=== PATIENT | male | born 1935 | race Caucasian/White ===

== ENCOUNTER 2024-02-16 14:04 | Emergency (ER) | payer BC, SELFPAY ==
[2024-02-16] VITALS (10 sets, daily range): BP systolic 139–179; BP diastolic 65–79; PULSE 58–63; RESP 40; TEMP 36.5; O2SAT 96–100; BMI 21.3
--- NOTE | 2024-02-16 14:42 | CRLHL7_ITS ---
For Patients: As a result of the Century Cures Act, medical imaging exams and procedure reports are released immediately into your electronic medical record. You may view this report before your referring provider. If you have questions, please contact your health care provider. Indication: Shortness of breath Technique: Chest 2 views Comparison: None Findings/Impression: Cardiovascular and mediastinum: Normal heart size with atherosclerotic calcification. 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 Trace left and small right pleural effusions likely with some loculation with bibasilar airspace disease. Findings are consistent with discoid atelectasis at the left lung base and could represent atelectasis or pneumonia on the right. Bones and soft tissues: No significant findings. Dictated by Kirk Arriaza MD @ 02/16/2024 3:28:10 PM (Electronically Signed)
[2024-02-16 15:06] LABS: Basophils Absolute Auto 0.03 K/uL (0.00-0.30); Basophils Percent Auto 0.3 % (0.0-3.0); Eosinophils Percent Auto 1.1 % (0.0-7.0); Hematocrit 39.1 % (37.0-53.0); Immature Granulocytes Abs Auto 0.03 K/uL (0.00-0.30); Immature Granulocytes Pct Auto 0.3 %; Lymphocytes Percent Auto 7.1 % (20-44); Mean Corpuscular HGB Conc 31 gm/dL (32-36); Mean Corpuscular Hemoglobin 26 pg (26-34); Mean Corpuscular Volume 84 fL (80-100); Monocytes Percent Auto 7.9 % (0.0-11.0); Neutrophils Percent Auto 83.3 % (42.0-72.0); Platelet Count* 298 K/uL (140-440); Red Blood Count 4.65 m/uL (4.30-5.90)
[2024-02-16 15:08] LABS: Slide Review Reflex No
--- NOTE | 2024-02-16 15:17 | ED_ITS ---
HPI - General Adult General Chief complaint: Weakness Stated complaint: insulin issues, fatigue Time Seen by Provider: 02/16/24 14:16 Source: patient and family Mode of arrival: ambulatory Limitations: no limitations History of Present Illness HPI narrative: 88-year-old male coming in today complaining of weakness and shortness of breath for approximately 1 month. He lives at home with his daughter who takes care of them, she states that she has seen him decline over the last month with increasing fatigue, weakness and inability to do his daily activity secondary to shortness of breath. No fevers. Patient has had very little appetite and has had decreased p.o. intake. Unclear if he is losing weight or not. His past medical history significant for chronic anemia, benign neoplasm of the meninges, hypertension, history of TIA and stroke, hyperlipidemia, chronic kidney disease stage 4, insulin-dependent type 2 diabetes. He takes acetaminophen, vitamin-D, Lasix 20 mg daily, metoprolol 100 mg b.i.d., rosuvastatin 10 mg daily, insulin. Related Data Home Medications ?Medication ?Instructions ?Recorded ?Confirmed cholecalciferol (vitamin D3) 50 50 mcg PO DAILY 02/16/24 02/16/24 mcg (2,000 unit) capsule furosemide 20 mg tablet 20 mg PO DAILY 02/16/24 02/16/24 metoprolol tartrate 100 mg tablet 100 mg PO BID 02/16/24 02/16/24 (Lopressor) rosuvastatin 10 mg tablet 10 mg PO DAILY 02/16/24 02/16/24 Allergies Allergy/AdvReac Type Severity Reaction Status Date / Time No Known Drug Allergies Allergy Verified 02/16/24 14:24 Review of Systems Status of ROS: Reports: 10 or more systems reviewed and unremarkable except as noted in History and below [facility] Social History Smoking Status: Never smoker How often do you have a drink containing alcohol: never AUDIT-C Alcohol total score: 0 Non-prescribed substance use: denies use Exam Narrative: Exam Narrative: Well-nourished well-developed, thin, elderly patient in no acute distress. Alert and oriented. Answers questions appropriately. Mood and affect are appropriate. Thoughts are goal oriented and rational. No tangential or magical thinking noted. Patient has a hard time finishing a full sentence without needing to catch his breath. Starts talking about how poorly he has been feeling over the last month a becomes very tearful and starts crying and hyperventilating. He does have to be calmed down but he is generally redirectable. When he is not tearful, patient's respiratory rate is 20 at rest. He is not tachypneic or tachycardic. HEENT: Normocephalic atraumatic. Pupils are equally round reactive to light. Extraocular muscles are intact. Conjunctivae are moist without any icterus noted. Moist mucous membranes. Posterior pharynx is normal. Neck is soft. Cardiovascular: Heart is regular rate and rhythm S1 and S2 are present without any murmurs. Lungs: Clear to auscultation bilaterally no wheezes rhonchi or rales are appreciated. Patient takes deep breaths without any discomfort. Abdomen: Soft and nontender nondistended with normal bowel sounds. No guarding or rebound. No masses or organomegaly appreciated. Extremities: Bilateral lower extremities are without edema. Normal DP and PT pulses. Skin: Well perfused without any obvious rashes. Skin is a bit dry. Const: Vital Signs, click to edit/add: Vital Signs - 24 hr 02/16/24 14:15 02/16/24 14:45 02/16/24 15:00 Temperature 97.7 F Pulse Rate 62 61 Pulse Rate [Pulse Oximeter] 63 Respiratory Rate 40 H Blood Pressure Blood Pressure [Ri ght Upper Arm] 179/79 H Pulse Oximetry 99 100 99 Oxygen Delivery Me thod Room Air 02/16/24 15:02 02/16/24 15:30 02/16/24 15:45 Temperature Pulse Rate 62 62 59 L Pulse Rate [Pulse Oximeter] Respiratory Rate Blood Pressure 163/78 H Blood Pressure [Ri ght Upper Arm] Pulse Oximetry 96 96 96 Oxygen Delivery Me thod 02/16/24 16:00 02/16/24 16:02 02/16/24 16:14 Temperature Pulse Rate 58 L 62 Pulse Rate [Pulse Oximeter] Respiratory Rate Blood Pressure 139/65 Blood Pressure [Ri ght Upper Arm] Pulse Oximetry 96 97 98 Oxygen Delivery Me thod 02/16/24 16:15 Temperature Pulse Rate 59 L Pulse Rate [Pulse Oximeter] Respiratory Rate Blood Pressure Blood Pressure [Ri ght Upper Arm] Pulse Oximetry 98 Oxygen Delivery Me thod Course Course ED Course: EKG, read by me, shows normal sinus rhythm with a pulse of 63, bifascicular block. I do not see any evidence of acute ischemic changes. CBC shows normal white cell count, hemoglobin is 12. Platelet count 298. Creatinine is elevated at 3.5 and a BUN of 110. Patient and daughter her unaware of his baseline but states that it is not normal. Magnesium slightly elevated at 3.0. Normal LFTs. CRP elevated at 3.0. Troponin is normal. BNP is elevated at 2750. Urine analysis is unremarkable. TSH is normal. Chest x-ray does show trace left and small right pleural effusions consistent with discoid atelectasis but could represent pneumonia. Given the fact that the patient does not have an elevated white count, does not have a cough with fevers and has been having symptoms for a month I do not think that this represents acute pneumonia. 88-year-old male with 1 month worth of decreased appetite, shortness of breath and generalized not feeling well. At this point I recommend patient take all of his blood work results and follow up with his primary care provider. I do think that he can increase his Lasix to b.i.d. for the next 3 days to see if this helps his shortness of breath at all. Vital Signs Vital signs: Initial Vital Signs Temperature 97.7 F 02/16/24 14:15 Temperature Source Temporal Artery Scan 02/16/24 14:15 Pulse Rate 63 02/16/24 14:15 Respiratory Rate 40 H 02/16/24 14:15 Blood Pressure 179/79 H 02/16/24 14:15 Blood Pressure Mean 112 H 02/16/24 14:15 Blood Pressure Position Semi-Fowlers 02/16/24 14:15 Pulse Oximetry 99 02/16/24 14:15 Oxygen Delivery Method Room Air 02/16/24 14:15 Vital Signs Temperature 97.7 F 02/16/24 14:15 Pulse Rate 63 02/16/24 14:15 Respiratory Rate 40 H 02/16/24 14:15 Blood Pressure 179/79 H 02/16/24 14:15 Pulse Oximetry 99 02/16/24 14:15 Oxygen Delivery Method Room Air 02/16/24 14:15 Temperature 97.7 F 02/16/24 14:15 Pulse Rate 59 L 02/16/24 16:15 Respiratory Rate 40 H 02/16/24 14:15 Blood Pressure 139/65 02/16/24 16:02 Pulse Oximetry 98 02/16/24 16:15 Oxygen Delivery Method Room Air 02/16/24 14:15 Medical Decision Making MDM Narrative Medical decision making narrative: 88-year-old male with 1 month worth of not feeling well, decreased appetite and shortness of breath. Plan per above. Lab Data Lab results reviewed: Yes I reviewed the patient's lab results Labs: Lab Results 02/16/24 02/16/24 Range/Units 14:58 Unknown WBC 9.10 (4.50-11.00) K/uL RBC 4.65 (4.30-5.90) m/uL Hgb 12.0 L (13.5-17.5) gm/dL Hct 39.1 (37.0-53.0) % MCV 84 (80-100) fL MCH 26 (26-34) pg MCHC 31 L (32-36) gm/dL RDW Coeff of [place] 15.0 (11.5-15.5) % Plt Count 298 (140-440) K/uL Neut % (Auto) 83.3 H (42.0-72.0) % Lymph % (Auto) 7.1 L (20-44) % [place] % (Auto) 7.9 (0.0-11.0) % Eos % (Auto) 1.1 (0.0-7.0) % Baso % (Auto) 0.3 (0.0-3.0) % Neut # (Auto) 7.60 H (1.7-7.0) K/uL Lymph # (Auto) 0.60 L (0.90-2.90) K/uL [place] # (Auto) 0.70 (0.00-0.90) K/UL Eos # (Auto) 0.10 (0.00-0.50) K/uL Baso # (Auto) 0.03 (0.00-0.30) K/uL Abs Immat Gran (auto) 0.03 (0.00-0.30) K/uL Imm/Tot Granulo (auto) 0.3 % Sodium 138 (135-149) mmol/L Potassium 4.1 (3.6-5.1) mmol/L Chloride 100 (96-114) mmol/L Carbon Dioxide 26 (20-32) mmol/L Anion Gap 12 (7-15) mEq/L BUN 110 H (7-30) mg/dL Creatinine 3.5 H (0.5-1.5) mg/dL Estimated Creat Clear 13.10 Estimated GFR 16 ml/min Glucose 244 H (60-115) mg/dL Lactate 1.0 (0.5-1.9) mmol/L Calcium 8.9 (8.4-10.6) mg/dL Magnesium 3.0 H (1.5-2.6) mg/dL Total Bilirubin 0.5 (0.1-1.5) mg/dL Direct Bilirubin 0.4 (0.0-0.5) mg/dL AST 42 H (12-35) U/L ALT 49 (4-50) U/L Alkaline Phosphatase 111 (40-150) U/L Troponin I < 0.01 L (0.01-0.04) ng/mL C-Reactive Protein 3.0 H (0.5-1.0) mg/dL NT-Pro-B Natriuret Pep 2750 pg/mL Total Protein 6.9 (6.0-8.3) g/dL Albumin 3.7 (3.3-5.0) g/dL TSH 0.900 (0.270-4.20) uIU/mL Urine Color Yellow (Yellow) Urine Appearance Clear (Clear) Urine pH 5.5 (5.0-8.5) Ur Specific [place] 1.015 (1.000-1.030) Urine Protein 1+ A (Negative) Urine Glucose (UA) Trace A (Negative) Urine Ketones Negative (Negative) Urine Blood Negative (Negative) Urine Nitrite Negative (Negative) Urine Bilirubin Negative (Negative) Urine Urobilinogen 0.2 (0.2-1.0) Ur Leukocyte Esterase Negative (Negative) Urine RBC 0-2 (0-2) Urine WBC 0-2 (0-5) Ur Squamous Epith Cells None (None-Few) Urine Bacteria None (None) Imaging Data Chest x-ray: Attestation: I have reviewed the pertinent imaging results. Radiologist's impression: Chest 2 views Comparison: None Findings/Impression: Cardiovascular and mediastinum: Normal heart size with atherosclerotic calcification. 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 Trace left and small right pleural effusions likely with some loculation with bibasilar airspace disease. Findings are consistent with discoid atelectasis at the left lung base and could represent atelectasis or pneumonia on the right. Bones and soft tissues: No significant findings. ECG Data Attestation: I personally reviewed and interpreted this ECG as follows: Discharge Plan Discharge Clinical Impression: Shortness of breath, Decreased appetite, Weakness Patient Disposition: Home w/ Parent or Adult Condition: Stable Additional Instructions: Your workup today revealed that your slightly fluid overloaded. This can cause shortness of breath. I recommend you increase your Lasix to 2 tablets daily for 2 days. Okay to take both tablets in the morning so that you are not up at night having to use the bathroom. You will be sent home with a copy of all your lab results today. I recommend you take those lab copies and follow-up with your primary care provider early next week. If your symptoms worsen, you develop chest pain, vomiting or fevers then you should return to the emergency room. Prescriptions: No Action cholecalciferol (vitamin D3) 50 mcg (2,000 unit) capsule 50 mcg PO DAILY furosemide 20 mg tablet 20 mg PO DAILY metoprolol tartrate [Lopressor] 100 mg tablet 100 mg PO BID rosuvastatin 10 mg tablet 10 mg PO DAILY Follow Up/Referrals: Tony Escobar MD [Primary Care Provider] - Stand Alone Forms: [employer] Info Instructions
[2024-02-16 15:27] LABS: Albumin* 3.7 g/dL (3.3-5.0); Chloride* 100 mmol/L (96-114); Sodium* 138 mmol/L (135-149)
[2024-02-16 15:28] LABS: Potassium* 4.1 mmol/L (3.6-5.1)
[2024-02-16 15:30] LABS: Anion Gap 12 mEq/L (7-15); Aspartate Amino Transferase* 42 U/L (12-35); Bilirubin Direct* 0.4 mg/dL (0.0-0.5); Bilirubin Total* 0.5 mg/dL (0.1-1.5); Carbon Dioxide* 26 mmol/L (20-32); Creatinine* 3.5 mg/dL (0.5-1.5); Estimated Glomerular Filt Rate 16 ml/min
[2024-02-16 15:31] LABS: Alanine Aminotransferase* 49 U/L (4-50); Alkaline Phosphatase* 111 U/L (40-150); Blood Urea Nitrogen* 110 mg/dL (7-30); Calcium* 8.9 mg/dL (8.4-10.6); Glucose* 244 mg/dL (60-115); Total Protein* 6.9 g/dL (6.0-8.3)
[2024-02-16 15:35] LABS: Appearance Urine Clear (Clear); Bilirubin Urine Negative (Negative); Blood Urine Negative (Negative); Color Urine Yellow (Yellow); Glucose Urine Trace (Negative); Ketones Urine Negative (Negative); Leukocyte Esterase Urine Negative (Negative); Nitrite Urine Negative (Negative); Protein Urine 1+ (Negative); Specific Gravity Urine 1.015 (1.000-1.030); Urobilinogen Urine 0.2 (0.2-1.0); pH Urine 5.5 (5.0-8.5)
[2024-02-16 15:45] LABS: NT Pro B Type NatriureticPept* 2750 pg/mL; Troponin I* < 0.01 ng/mL (0.01-0.04)
[2024-02-16 15:46] LABS: RBC Urine 0-2 (0-2); WBC Urine 0-2 (0-5)
[2024-02-16 16:58] LABS: PCR FLU A Negative PCR FLU A (Negative); PCR FLU B Negative PCR FLU B (Negative); PCR RSV Negative PCR RSV (Negative); SARS PCR* Negative SARS-CoV-2 (Negative)
== END 2024-02-16 16:55 | disposition home or self-care (01) ==
PROVIDERS: Emergency Provider Family Medicine; PCP Surgery
DX: R06.02 Shortness of breath (principal); R63.0 Anorexia; R53.1 Weakness
CPT/HCPCS: 36415; 71046; 80048; 80076; 81001; 83605; 83735; 83880; 84443; 84484; 85025; 86140; 87086; 87631; 93005; 94761; 99284; 99285

== ENCOUNTER 2024-02-27 11:30 | Outpatient (CLI) | payer MEDICARE, SELFPAY ==
[2024-02-27 11:41] VITALS: BP 152/73; PULSE 64; RESP 18; TEMP 36.4; O2SAT 99
--- NOTE | 2024-02-27 11:55 | CRLHL7_ITS ---
For Patients: As a result of the Century Cures Act, medical imaging exams and procedure reports are released immediately into your electronic medical record. You may view this report before your referring provider. If you have questions, please contact your health care provider. Indication: Post thoracentesis. Technique: Chest 1 view. Comparison: Chest radiographs dated 02/16/2024. Findings/Impression: Cardiovascular and mediastinum: Heart size and vasculature are unchanged in caliber and appearance. Redemonstrated patchy bilateral peripheral hyperdensities, most pronounced in the left lung base lung, likely reflecting calcified pleural plaques. Lungs and pleural space: Interval decrease size of the right pleural effusion with likely small volume residual fluid. Persistent right basilar consolidation may reflect resolving atelectasis, though this could be further characterized with a chest CT. No evident new consolidation or pneumothorax. Bones and soft tissues: No acute findings. Dictated by Blayne Carr MD @ 02/27/2024 12:47:27 PM (Electronically Signed)
[2024-02-27 12:09] VITALS: BP 148/68; PULSE 64; RESP 16; O2SAT 98
--- NOTE | 2024-02-27 12:18 | PM.GSCN ---
History of Present Illness Consult details Date Seen: 02/27/24 Consult date: 02/27/24 Narrative: Patient presents for a diagnostic thoracentesis. He was seen by his primary doctor for fatigue and shortness of breath. 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 An order was placed for a diagnostic and therapeutic thoracentesis. Patient has never had this performed before. He is maintained on room air with no need for oxygen. He lives at home with his daughter who is present with him today. [facility] Social History Smoking Status: Never smoker How often do you have a drink containing alcohol: never AUDIT-C Alcohol total score: 0 Non-prescribed substance use: denies use Meds Home Medications and Allergies Home Medications ?Medication ?Instructions ?Recorded ?Confirmed ?Type cholecalciferol (vitamin D3) 50 50 mcg PO DAILY 02/16/24 02/16/24 History mcg (2,000 unit) capsule furosemide 20 mg tablet 20 mg PO DAILY 02/16/24 02/16/24 History metoprolol tartrate 100 mg tablet 100 mg PO BID 02/16/24 02/16/24 History (Lopressor) rosuvastatin 10 mg tablet 10 mg PO DAILY 02/16/24 02/16/24 History Allergies Allergy/AdvReac Type Severity Reaction Status Date / Time No Known Drug Allergies Allergy Verified 02/16/24 14:24 Exam Narrative: Exam Narrative: General: Alert and oriented, no acute distress Respiratory: Maintained on room air, equal breath rise bilaterally. Decreased breath sounds right lower lung base CV: Well perfused Const: Vital Signs, click to edit/add: Vital Signs - 24 hr 02/27/24 11:41 02/27/24 12:09 Temperature 97.6 F Pulse Rate [Pulse Oximeter] 64 64 Respiratory Rate 18 16 Blood Pressure [Ri ght Arm] 152/73 H 148/68 H Pulse Oximetry 99 98 Oxygen Delivery Me thod Room Air Room Air Results Labs Labs: No new labs today to review review. On chart review hemoglobin 12, platelets 298. No need for anti coagulation studies. Imaging CT scan - chest: report reviewed (Imaging through [facility]) General Surgery Procedures Thoracentesis Time Out Performed: Yes Imaging guidance used ?: Yes Indication: Pleural effusion Procedure: therapeutic thoracentesis and diagnostic thoracentesis Location: right Local anesthetic used: lidocaine Amount of anesthesia used (mL): 5 Bedside ultrasound used: yes, fluid confirmed and location marked Preparation: sterile prep and drape and 11 blade used to make nimco in skin Amount of fluid obtained (mL): 600 Fluid: clear and other (Serous sanguinous, no concern for bright red blood or active bleeding) Post Procedure Exam: awake, alert, normal BP, normal HR and normal SpO2 Patient Tolerated Procedure: well and no complications Complications: none Progress Note:A&P Assessment and plan (1) Pleural effusion, right: Status: Acute Plan Patient presents for diagnostic and therapeutic thoracentesis. Risks and benefits of the procedure were discussed at length with the patient. Risks included, but were not limited to: Bleeding, infection, risk of damage to surrounding structures and possible need for additional procedures. Ultrasound guidance was used to find a good fluid pocket for removal. There were some loculations present within the pleural space. Patient tolerated procedure well with 600 mL fluid removed. The procedure was stopped when patient started to complain of pain on the right side of his chest. Vital signs stable throughout. Postprocedure chest x-ray demonstrated small residual fluid within the right lung base, no evidence of pneumothorax.
[2024-02-27 12:20] VITALS: BP 169/79; RESP 16; O2SAT 97
[2024-02-27 12:25] VITALS: BP 170/77; PULSE 62; RESP 16; O2SAT 99
[2024-02-27 12:30] VITALS: BP 167/78; PULSE 60; RESP 16; O2SAT 100
--- NOTE | 2024-02-27 12:35 | PC.NURSE ---
Recommended to continue to check BP at home and call PCP if BP is still elevated.
[2024-02-27 13:17] LABS: BF Clarity* Cloudy; BF Color Grossly Bloody; BF Total Volume* 60; pH Body Fluid* 8.5
[2024-02-27 13:22] LABS: Mononuclear WBC Body Fluid* 72 %; Polynuclear WBC Body Fluid* 28 %; RBC, Body Fluid* 108000 Cells/uL; WBC, Body Fluid* 157 Cells/uL
[2024-02-27 13:41] LABS: Albumin Body Fluid* 1.2 gm/dL; Amylase Body Fluid* 35 U/L; Body Fluid Total Protein* 2.8 gm/dL; Cholesterol Body Fluid* < 50 mg/dL; Glucose Body Fluid* 145 mg/dL; LDH Body Fluid* 386 U/L
== END 2024-02-27 12:36 | disposition home or self-care (01) ==
LOC: US 11:30
PROVIDERS: PCP Surgery; Visit Provider Surgery
DX: J90 Pleural effusion, not elsewhere classified (principal)
CPT/HCPCS: 32555; 71045; 82042; 82150; 82247; 82945; 83615; 83986; 84157; 84311; 87070; 87102; 87116; 87205; 88112; 88305; 89051

== ENCOUNTER 2024-03-05 19:43 | Inpatient (IN) | payer MEDICARE, SELFPAY ==
[2024-03-05 19:57] VITALS: BP 123/66; PULSE 69; RESP 18; TEMP 37.2; O2SAT 96; BMI 20.4
--- NOTE | 2024-03-05 20:03 | ED.SOB ---
HPI - SOB/Dyspnea General Time Seen by Provider: 20:03 Date Seen: 03/05/24 Chief Complaint: Shortness of Breath/Dyspnea Stated Complaint: Labored breathing, weakness, body aches Time Seen by Provider: 03/05/24 20:03 Source: patient, RN notes reviewed and old records reviewed Mode of arrival: ambulatory Limitations: no limitations History of Present Illness HPI Narrative: Jeff is a very pleasant 88-year-old male with past medical history significant for chronic anemia, benign neoplasm of the meninges, hypertension, history of TIA and stroke, hyperlipidemia, chronic kidney disease stage 4, insulin-dependent type 2 diabetes comes to the emergency room for evaluation of increasing weakness, increasing cough with production and body aches over the past few days. Jeff's daughter accompanies him and is very loving and supportive. She tells me that Jeff has actually been dealing with upper back and arm pain for many months. She states that she they have done x-rays and they are thinking that this is most are early arthritis. She then tells me that last week Jeff had a right lung thoracentesis to remove some fluid. She is wondering if maybe the fluid accumulation is back with the increased coughing. It does appear that Jeff has had body aches for quite some time as well as shortness of breath on and off for many months. They were talking about him doing okay this summer but eating less. Because of this they decided to discontinue his insulin as he had a stable A1c and that was stopped on January 19. Following that he had a significant weight loss of 13 lb and the onset of fatigue fatigue. Jeff's daughter states she restarted his nighttime dose of insulin. Jeff notes that his cough is now productive and that is new. He has also had a change in his taste and states that he can not eat because everything tastes spicy. Of they have skipped his insulin today because of the decreased oral intake. He had 1 episode of vomiting earlier today. He had the onset of diarrhea today as well. He is urinating without difficulty. Related Data Home Medications ?Medication ?Instructions ?Recorded ?Confirmed cholecalciferol (vitamin D3) 50 50 mcg PO DAILY 02/16/24 02/16/24 mcg (2,000 unit) capsule furosemide 20 mg tablet 20 mg PO DAILY 02/16/24 02/16/24 metoprolol tartrate 100 mg tablet 100 mg PO BID 02/16/24 02/16/24 (Lopressor) rosuvastatin 10 mg tablet 10 mg PO DAILY 02/16/24 02/16/24 Allergies Allergy/AdvReac Type Severity Reaction Status Date / Time No Known Drug Allergies Allergy Verified 02/16/24 14:24 Review of Systems Status of ROS: Reports: 10 or more systems reviewed and unremarkable except as noted in History and below Const: Reports: fatigue; Denies: fever ENMT: Reports: nasal congestion Cardio: Reports: shortness of breath with exertion; Denies: chest pain, swelling of feet/ankles or lightheadedness Resp: Reports: shortness of breath and cough GI: Reports: vomiting and diarrhea; Denies: abdominal pain : Denies: painful urination or urinary frequency Musculo: Reports: back pain Endo: Reports: fatigue PFSH PFSH Social History Smoking Status: Never smoker Second hand tobacco smoke exposure: No How often do you have a drink containing alcohol: never AUDIT-C Alcohol total score: 0 Non-prescribed substance use: denies use Exam Narrative: Exam Narrative: Heart with regular rate and rhythm. Patient is alert and oriented. Very well-spoken gentleman in no acute distress. Able to speak in complete sentences but gets somewhat breathless. Mildly tachypneic with normal O2 sats. Lungs with decreased surrounds in the bases right greater than left. Abdomen is soft nontender. No pain in the right upper quadrant. Lower extremities with no evidence of fluid retention or edema. Patient improved at rest. Very weak and needed 2 person transfer to get out of the wheelchair. Const: Vital Signs, click to edit/add: Vital Signs - 24 hr 03/05/24 19:57 03/05/24 21:04 03/05/24 22:00 Temperature 99.0 F Pulse Rate 63 Pulse Rate [Pulse Oximeter] 69 Respiratory Rate 18 Blood Pressure Blood Pressure [Le ft Upper Arm] 123/66 Pulse Oximetry 96 96 97 Oxygen Delivery Me thod Room Air 03/05/24 22:01 03/05/24 22:15 03/05/24 23:01 Temperature Pulse Rate 64 65 66 Pulse Rate [Pulse Oximeter] Respiratory Rate 18 16 Blood Pressure 106/50 L 127/56 L Blood Pressure [Le ft Upper Arm] Pulse Oximetry 95 95 96 Oxygen Delivery Mi thod Documenting provider has reviewed patient's vital signs: yes Course Course ED Course: Differential diagnosis includes but is not limited to pneumonia, congestive heart failure, pleural effusion, COVID, viral illness, UTI. Will place IV and draw blood to include CBC, comprehensive panel, CRP, troponin, proBNP. Will do the triple swab as well as chest x-ray EKG and urinalysis. Reevaluation(s) Reevaluation #1: Patient noted to continue to be stable vital E. His creatinine has come back elevated at 3.8. Previous value in January was 2.7. Fluids are initiated. Chest x-ray shows increased lung markings throughout with suspicion for reaccumulation of right sided pleural effusion. CT of the chest is ordered without contrast. EKG reassuring. Vital Signs Vital signs: Initial Vital Signs Respiratory Effort Spontaneous, Labored, Short of Breath 03/05/24 19:56 Respiratory Pattern Normal 03/05/24 19:56 Vital Signs Temperature 99.0 F 03/05/24 19:57 Pulse Rate 69 03/05/24 19:57 Respiratory Rate 18 03/05/24 19:57 Blood Pressure 123/66 03/05/24 19:57 Pulse Oximetry 96 03/05/24 19:57 Oxygen Delivery Method Room Air 03/05/24 19:57 Temperature 99.0 F 03/05/24 19:57 Pulse Rate 65 03/06/24 00:00 Respiratory Rate 16 03/06/24 00:00 Blood Pressure 127/56 L 03/05/24 23:01 Pulse Oximetry 97 03/06/24 00:00 Oxygen Delivery Method Room Air 03/06/24 00:00 Medications Administered Medications: Generic Name Dose Route Start Last Admin Trade Name Freq PRN Reason Stop Dose Admin Sodium Chloride 1,000 mls @ 125 mls/hr 03/05/24 21:05 03/05/24 21:31 0.9 % Sodium Chloride 1000 Ml IV 125 mls/hr .Q8H REYNA Administration MDM - SOB/Dyspnea MDM Narrative Medical decision making narrative: 1. Weakness -likely to underlying viral illness with onset of worsening cough, diarrhea today. Patient has tested negative for COVID influenza and RSV. Given his symptoms he is strongly suspicious for COVID but again the test is negative. O2 sats 96%. He is slightly tachypneic however. Strongly suspect underlying viral illness but there is no evidence of pneumonia at this time. Did add of blood cultures but given no obvious a bacterial illness will hold off on any antibiotics at this time. EKG unchanged from previous and troponin 0.05. In the indeterminate range but likely a reflection of elevated creatinine. No reports of chest pain at this time. 2. Increasing cough -no pneumonia noted on CT. O2 sats 96% at rest. Pleural effusion noted to be drained 1 week ago. Cytology negative for cancerous cells. 3. Acute on chronic kidney failure -creatinine in in January 2.7. Tonight elevated to 3.8. Of note patient has had creatinine elevated over 3 prior to January. Fluids are initiated normal saline at 125 an hour. 4. Elevated proBNP-no evidence of failure noted on CT of the chest but proBNP has markedly increased from [id number] since early February. No evidence of fluid retention. 5. Hyperglycemia-patient noted to have been on insulin for quite some time but during the summer months noted have quite a few episodes of hypoglycemia. Given reassuring hemoglobin A1cs the decision was made to discontinue his insulin entirely on January 19. His daughter then notes steadily increasing glucose numbers and she restarted his long-acting nighttime dose of insulin although she has held it over the past 2 nights because he has not been feeling well and thus not eating. Wil's glucose 168. 5. Disposition-admit to the floor under the care of JOHNNY Heath physician. Medical Records Attestation: I reviewed the patient's medical records. Lab Data Attestation: I reviewed the patient's lab results. Labs: Lab Results 03/05/24 03/05/24 Range/Units 20:00 20:38 WBC 9.99 (4.50-11.00) K/uL RBC 4.44 (4.30-5.90) m/uL Hgb 11.5 L (13.5-17.5) gm/dL Hct 37.9 (37.0-53.0) % MCV 85 (80-100) fL MCH 26 (26-34) pg MCHC 30 L (32-36) gm/dL RDW Coeff of Lenore 15.5 (11.5-15.5) % Plt Count 331 (140-440) K/uL Neut % (Auto) 83.0 H (42.0-72.0) % Lymph % (Auto) 6.6 L (20-44) % [place] % (Auto) 8.9 (0.0-11.0) % Eos % (Auto) 0.6 (0.0-7.0) % Baso % (Auto) 0.5 (0.0-3.0) % Neut # (Auto) 8.30 H (1.7-7.0) K/uL Lymph # (Auto) 0.70 L (0.90-2.90) K/uL [place] # (Auto) 0.90 (0.00-0.90) K/UL Eos # (Auto) 0.06 (0.00-0.50) K/uL Baso # (Auto) 0.05 (0.00-0.30) K/uL Abs Immat Gran (auto) 0.04 (0.00-0.30) K/uL Imm/Tot Granulo (auto) 0.4 % Sodium 132 L (135-149) mmol/L Potassium 4.7 (3.6-5.1) mmol/L Chloride 99 (96-114) mmol/L Carbon Dioxide 20 (20-32) mmol/L Anion Gap 13 (7-15) mEq/L BUN 96 H (7-30) mg/dL Creatinine 3.8 H (0.5-1.5) mg/dL Estimated Creat Clear 11.55 Estimated GFR 15 ml/min Glucose 168 H (60-115) mg/dL Calcium 8.4 (8.4-10.6) mg/dL Total Bilirubin 0.6 (0.1-1.5) mg/dL AST 26 (12-35) U/L ALT 29 (4-50) U/L Alkaline Phosphatase 96 (40-150) U/L C-Reactive Protein 3.5 H (0.5-1.0) mg/dL NT-Pro-B Natriuret Pep 4360 pg/mL Total Protein 5.9 L (6.0-8.3) g/dL Albumin 3.1 L (3.3-5.0) g/dL SARS-CoV-2 (PCR) Negative SARS-CoV-2 (Negative) Influenza Type A (PCR) Negative PCR FLU A (Negative) Influenza Type B (PCR) Negative PCR FLU B (Negative) RSV (PCR) Negative PCR RSV (Negative) POC Creatinine 4.2 H (0.6-1.3) mg/dl POC Troponin I 0.05 H (0.01-0.04) ng/ml Imaging Data Chest x-ray: Attestation: I have reviewed the pertinent imaging results. My impression: Increased lung markings throughout. Questionable pleural effusion right lower lung base. Radiologist's impression: Mediastinum: The mediastinum is normal in appearance. The heart silhouette is normal in size and morphology. Lung: There is a new convex density in the right lateral lung base measuring nearly 6 cm. 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 No pneumothorax is identified. Bone and Soft tissue: Unremarkable for age. IMPRESSION: 1. There is a new convex density in the right lateral lung base measuring nearly [address] may be helpful to distinguish between loculated fluid or pleural-based mass. CT scan - chest: Attestation: I have reviewed the pertinent imaging results. Radiologist's impression: Lungs and pleura: Moderate loculated right pleural effusion, corresponding to abnormality on chest radiograph, similar to prior chest CT. Bibasilar consolidative opacities are similar to the prior chest CT. Bilateral pleural plaques are also similar to prior. No pneumothorax. No definite pulmonary mass or suspicious pulmonary nodule. Heart and vasculature: No cardiomegaly or pericardial effusion. Atherosclerotic calcifications of the thoracic aorta without thoracic aortic aneurysm. Coronary artery calcifications are present. Lymph nodes/mediastinum: No suspicious lymphadenopathy.. Chest wall: No acute or suspicious abnormality. Upper abdomen: No acute or suspicious abnormality. Bones: No acute or suspicious osseous abnormalities. IMPRESSION: 1. Abnormality noted on recent chest radiograph corresponds to moderate loculated right pleural effusion, similar to prior chest CT. Bibasilar consolidative opacities/rounded atelectasis is also similar to prior. 2. Sequelae of prior asbestos exposure, similar to prior chest CT. ECG Data Attestation: I personally reviewed and interpreted this ECG as follows: ECG interpretation date: 03/05/24 Interpretation: EKG by my read shows sinus rhythm rate of 66. Widened QRS noted in V1 V2 indicating right bundle-branch block. Do not note any acute ST or T-wave changes. QT and MN intervals within normal limits. Compared to previous EKG this is largely unchanged.
[2024-03-05 20:54] LABS: Creatinine, Point-of-Care* 4.2 mg/dl (0.6-1.3); Troponin, Point-of-Care* 0.05 ng/ml (0.01-0.04)
[2024-03-05 21:04] VITALS: O2SAT 96
[2024-03-05 21:09] LABS: PCR FLU A Negative PCR FLU A (Negative); PCR FLU B Negative PCR FLU B (Negative); PCR RSV Negative PCR RSV (Negative); SARS PCR* Negative SARS-CoV-2 (Negative)
[2024-03-05 21:13] LABS: Basophils Absolute Auto 0.05 K/uL (0.00-0.30); Basophils Percent Auto 0.5 % (0.0-3.0); Eosinophils Absolute Auto 0.06 K/uL (0.00-0.50); Eosinophils Percent Auto 0.6 % (0.0-7.0); Hematocrit* 37.9 % (37.0-53.0); Hemoglobin* 11.5 gm/dL (13.5-17.5); Immature Granulocytes Abs Auto 0.04 K/uL (0.00-0.30); Immature Granulocytes Pct Auto 0.4 %; Lymphocytes Percent Auto 6.6 % (20-44); Mean Corpuscular HGB Conc 30 gm/dL (32-36); Mean Corpuscular Hemoglobin 26 pg (26-34); Mean Corpuscular Volume 85 fL (80-100); Monocytes Percent Auto 8.9 % (0.0-11.0); Platelet Count* 331 K/uL (140-440); RDW Coefficient of Variation % 15.5 % (11.5-15.5); Red Blood Count* 4.44 m/uL (4.30-5.90); White Blood Count* 9.99 K/uL (4.50-11.00)
[2024-03-05 21:15] LABS: Albumin* 3.1 g/dL (3.3-5.0); Chloride* 99 mmol/L (96-114); Sodium* 132 mmol/L (135-149)
[2024-03-05 21:16] LABS: Potassium* 4.7 mmol/L (3.6-5.1)
[2024-03-05 21:18] LABS: Alanine Aminotransferase* 29 U/L (4-50); Alkaline Phosphatase* 96 U/L (40-150); Anion Gap 13 mEq/L (7-15); Aspartate Amino Transferase* 26 U/L (12-35); Bilirubin Total* 0.6 mg/dL (0.1-1.5); Blood Urea Nitrogen* 96 mg/dL (7-30); Carbon Dioxide* 20 mmol/L (20-32); Creatinine* 3.8 mg/dL (0.5-1.5); Est. Creatinine Clearance* 11.55; Estimated Glomerular Filt Rate 15 ml/min; Total Protein* 5.9 g/dL (6.0-8.3)
[2024-03-05 21:19] LABS: Calcium* 8.4 mg/dL (8.4-10.6); Glucose* 168 mg/dL (60-115)
[2024-03-05 21:21] LABS: C Reactive Protein* 3.5 mg/dL (0.5-1.0)
[2024-03-05 21:23] LABS: Slide Review Reflex No
[2024-03-05] MEDS: 0.9 % SODIUM CHLORIDE 1000 ml 1,000 ML 125 ML IV (21:31)
--- NOTE | 2024-03-05 21:35 | CRLHL7_ITS ---
For Patients: As a result of the Century Cures Act, medical imaging exams and procedure reports are released immediately into your electronic medical record. You may view this report before your referring provider. If you have questions, please contact your health care provider. INDICATION: Cough TECHNIQUE: Chest radiograph 1 view COMPARISON: 02/27/2024 FINDINGS: Mediastinum: The mediastinum is normal in appearance. The heart silhouette is normal in size and morphology. Lung: There is a new convex density in the right lateral lung base measuring nearly 6 cm. 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 No pneumothorax is identified. Bone and Soft tissue: Unremarkable for age. IMPRESSION: 1. There is a new convex density in the right lateral lung base measuring nearly [address] may be helpful to distinguish between loculated fluid or pleural-based mass. Dictated by Suresh Shipman MD @ 03/05/2024 10:11:00 PM Dictated by: Suresh Shipman MD @ 03/05/2024 22:11:05 (Electronically Signed)
[2024-03-05 21:41] LABS: NT Pro B Type NatriureticPept* 4360 pg/mL
[2024-03-05 22:00] VITALS: PULSE 63; O2SAT 97
[2024-03-05 22:01] VITALS: BP 106/50; PULSE 64; RESP 18; O2SAT 95
[2024-03-05 22:15] VITALS: PULSE 65; O2SAT 95
--- NOTE | 2024-03-05 22:22 | CRLHL7_ITS ---
For Patients: As a result of the Century Cures Act, medical imaging exams and procedure reports are released immediately into your electronic medical record. You may view this report before your referring provider. If you have questions, please contact your health care provider. INDICATION: New mass on chest x-ray. TECHNIQUE: CT chest without contrast. COMPARISON: Chest x-ray 03/05/2024, chest CT 02/21/2024. FINDINGS: Lungs and pleura: Moderate loculated right pleural effusion, corresponding to abnormality on chest radiograph, similar to prior chest CT. Bibasilar consolidative opacities are similar to the prior chest CT. Bilateral pleural plaques are also similar to prior. No pneumothorax. No definite pulmonary mass or suspicious pulmonary nodule. Heart and vasculature: No cardiomegaly or pericardial effusion. Atherosclerotic calcifications of the thoracic aorta without thoracic aortic aneurysm. Coronary artery calcifications are present. Lymph nodes/mediastinum: No suspicious lymphadenopathy.. Chest wall: No acute or suspicious abnormality. Upper abdomen: No acute or suspicious abnormality. Bones: No acute or suspicious osseous abnormalities. IMPRESSION: 1. Abnormality noted on recent chest radiograph corresponds to moderate loculated right pleural effusion, similar to prior chest CT. Bibasilar consolidative opacities/rounded atelectasis is also similar to prior. 2. Sequelae of prior asbestos exposure, similar to prior chest CT. Please note that all CT scans at this facility use dose modulation, iterative reconstruction, and/or weight-based dosing when appropriate to reduce radiation dose to as low as reasonably achievable. Dictated by Parish Cruz MD @ 03/06/2024 12:15:46 AM (Electronically Signed)
[2024-03-05 23:01] VITALS: BP 127/56; PULSE 66; RESP 16; O2SAT 96
[2024-03-06] VITALS (13 sets, daily range): BP systolic 112–150; BP diastolic 51–72; PULSE 65–77; RESP 16–31; TEMP 36.3–36.8; O2SAT 94–98; BMI 20.1
--- NOTE | 2024-03-06 01:51 | CRLHL7_ITS ---
For Patients: As a result of the Century Cures Act, medical imaging exams and procedure reports are released immediately into your electronic medical record. You may view this report before your referring provider. If you have questions, please contact your health care provider. Indication: Weight loss, diarrhea, no history of colonoscopy. Technique: CT of the abdomen and pelvis was performed without contrast. Comparison: Chest CT 02/21/2024. Findings: Limited evaluation due to noncontrast technique. Visualized lung bases: Small right pleural effusion with associated pleural calcifications. There are dense calcified plaques along the inferior aspect of the diaphragm bilaterally. Additionally, there are rounded areas consolidation within the medial lung bases bilaterally with associated parenchymal calcifications as well as bronchovascular distortion, most suggestive of round atelectasis. Dense atherosclerotic calcifications. Mitral annular calcifications. Atherosclerotic coronary artery calcifications. Liver: Diffuse hepatic steatosis. Normal gallbladder. No biliary ductal dilation. Pancreas: Pancreatic gland atrophy. Spleen: Unremarkable for unenhanced technique. Adrenals: Unremarkable for unenhanced technique. Kidneys: Atrophic left kidney. No nephrolithiasis or hydronephrosis. Aorta/IVC: Extensive atherosclerotic calcifications of the aorta and its branches. Infrarenal abdominal aortic aneurysm measuring 3.1 cm. Lymph nodes: No lymphadenopathy. Bowel: Nonobstructed bowel. Extensive colonic diverticulosis without findings of acute diverticulitis. Normal appendix. No localized inflammatory changes. No intraperitoneal free air or fluid. Pelvis: Vazquez catheter within the decompressed bladder. Bones/body wall: Small fat containing left inguinal hernia and umbilical hernia. 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 Osseous demineralization. Multilevel degenerative disc disease. Impression: 1. Limited evaluation for malignancy on noncontrast technique. No definite evidence of malignancy identified in the abdomen or pelvis. 2. Extensive colonic diverticulosis without findings of acute diverticulitis. 3. Hepatic steatosis. 4. Infrarenal abdominal aortic aneurysm measuring 3.1 cm. 5. 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 Findings are similar compared to CT from 02/21/2024. 6. Additional chronic/incidental findings as described. Please note that all CT scans at this facility use dose modulation, iterative reconstruction, and/or weight-based dosing when appropriate to reduce radiation dose to as low as reasonably achievable. Dictated by Katheryn Miranda MD @ 03/06/2024 9:52:49 AM (Electronically Signed)
--- NOTE | 2024-03-06 01:59 | W.PM.THH&P_ITS ---
Telehealth- H&P: HPI History of Present Illness Time Seen by Provider: 01:05 Date Seen: 03/06/24 Chief complaint: Labored breathing, weakness, body aches Narrative: Jeff Christopher SR is seen as an Interactive Telehealth visit. Jeff Christopher SR is a 88 year old male who Presents to the hospital with complaints of weakness and shortness of breath. Patient has been experiencing weakness and shortness of breath essentially for about 3 months. He has noted a progressive decline since then. He has had a marked weight loss and progressive shortness of breath. His primary care provider noted that he has been losing weight and in fact was able to get off his insulin from an insulin blood glucose standpoint. He was having recurrent episodes of hypoglycemic episodes. He presented to the ER a few times earlier this month due to weakness and poor oral intake. At that time his BUN was noted to be 110, his creatinine was 3.5. His chest x-ray showed a right pleural effusion and possibly trace left effusion so he was actually administered Lasix given his progressive shortness of breath. He followed up with his primary care provider and eventually underwent a thoracentesis. Thoracentesis was noted to be bloody, with elevated LDH and an exudative appearance. pH was noted to be greater than 8. He was planning to see a chemical research technician but his next appointment availability is in May 2024. Today the patient was having increasing weakness and fatigue and patient's daughter, who lives with the patient was unable to care for the patient. She brought the patient to the emergency room. In the emergency room, the patient underwent a CT scan of the chest which showed a loculated pleural effusion. 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 Patient's creatinine and BUN has worsened with a BUN of 96, creatinine of 3.8. Patient was afebrile. Patient's COVID-19 and influenza testing was negative. Review of Systems Status of ROS: Reports: 10 or more systems reviewed and unremarkable except as noted in History and below Const: Reports: change in weight and fatigue; Denies: fever or chills ENMT: Reports: difficulty swallowing; Denies: neck pain Cardio: Reports: lightheadedness, shortness of breath with exertion and shortness of breath when lying down; Denies: chest pain Resp: Reports: shortness of breath GI: Reports: diarrhea and difficulty swallowing; Denies: abdominal pain, nausea or vomiting : Denies: painful urination Musculo: Reports: muscle weakness; Denies: back pain, neck pain, extremity pain or extremity swelling Neuro: Denies: headache or numbness in extremities Psych: Denies: anxiety or mood swings Endo: Reports: fatigue; Denies: excessive urination [facility] Social History Smoking Status: Never smoker Second hand tobacco smoke exposure: No How often do you have a drink containing alcohol: never AUDIT-C Alcohol total score: 0 Non-prescribed substance use: denies use Meds Home Medications and Allergies Home Medications ?Medication ?Instructions ?Recorded ?Confirmed ?Type cholecalciferol (vitamin D3) 50 50 mcg PO DAILY 02/16/24 02/16/24 History mcg (2,000 unit) capsule furosemide 20 mg tablet 20 mg PO DAILY 02/16/24 02/16/24 History metoprolol tartrate 100 mg tablet 100 mg PO BID 02/16/24 02/16/24 History (Lopressor) rosuvastatin 10 mg tablet 10 mg PO DAILY 02/16/24 02/16/24 History Allergies Allergy/AdvReac Type Severity Reaction Status Date / Time No Known Drug Allergies Allergy Verified 02/16/24 14:24 Exam Narrative Exam Narrative: Physical Exam GENERAL: ?vital signs reviewed, thin male, cachectic in appearance, in no distress HEENT: pupils are equal round and reactive to light, extraocular movements are grossly within normal limits and oral mucosa is moist. tongue has whiteish plaques NECK: Supple without lymphadenopathy or thyromegaly according to nursing staff examination observation HEART: Regular rate and rhythm without any rubs, murmurs, or gallops. LUNGS: Coarse lungs sounds bilateral R>> L ABDOMEN: Observation from nurse assisted exam, abdomen appears soft, nontender, and nondistended with Positive bowel sounds noted. EXTREMITIES: significant muscle wasting in lower extremities, able to move legs grossly SKIN:? Observed warm and dry with color normal Const Vital Signs, click to edit/add: Vital Signs - 24 hr 03/05/24 19:57 03/05/24 21:04 03/05/24 22:00 Temperature 99.0 F Pulse Rate 63 Pulse Rate [Pulse Oximeter] 69 Respiratory Rate 18 Blood Pressure Blood Pressure [Left Upper Arm] 123/66 Pulse Oximetry 96 96 97 Oxygen Delivery Method Room Air 03/05/24 22:01 03/05/24 22:15 03/05/24 23:01 Temperature Pulse Rate 64 65 66 Pulse Rate [Pulse Oximeter] Respiratory Rate 18 16 Blood Pressure 106/50 L 127/56 L Blood Pressure [Left Upper Arm] Pulse Oximetry 95 95 96 Oxygen Delivery Method 03/06/24 00:00 Temperature Pulse Rate 65 Pulse Rate [Pulse Oximeter] Respiratory Rate 16 Blood Pressure Blood Pressure [Left Upper Arm] Pulse Oximetry 97 Oxygen Delivery Method Room Air Common normals: no apparent distress and oriented x3 Exam limitations: no altered mental status General appearance: cooperative Neuro Common normals: oriented x3 Hospitalist - H&P: Result Labs Labs: Short CBC 03/05/24 Range/Units 20:38 WBC 9.99 (4.50-11.00) K/uL Hgb 11.5 L (13.5-17.5) gm/dL Hct 37.9 (37.0-53.0) % Plt Count 331 (140-440) K/uL BMP 03/05/24 20:38 Sodium 132 L Potassium 4.7 Chloride 99 Carbon Dioxide 20 BUN 96 H Creatinine 3.8 H Glucose 168 H Calcium 8.4 Liver Function 03/05/24 Range/Units 20:38 Total Bilirubin 0.6 (0.1-1.5) mg/dL AST 26 (12-35) U/L ALT 29 (4-50) U/L Alkaline Phosphatase 96 (40-150) U/L Albumin 3.1 L (3.3-5.0) g/dL Assessment and Plan Assessment and plan (1) Weight loss: Status: Acute (2) Diarrhea: Status: Acute (3) Acute renal failure superimposed on stage 3 chronic kidney disease: Status: Acute (4) 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 Over the past 3 months the patient has had a considerable amount of weight loss. His overall symptoms have been associate with shortness of breath and poor oral appetite. His shortness of breath is likely associated with a multiloculated recurrent pleural effusion on the right side of his lung. He has developed progressive weakness as he has been administered Lasix as well as poor oral intake worsening his dehydration. His dehydration has progressively worsened with his renal failure. We do not know his baseline but given his markedly elevated BUN and elevated creatinine, my assumption is there is a significant prerenal component to his renal failure. He has noted a significant weight loss in the past 3 months. He has developed significant large muscle atrophy in the lower extremities. His oral intake has been very poor. My suspicion is it could be an underlying organic process in addition to his weight loss can trip contribution. He has never had a colonoscopy in the past. I will order a CT scan of the abdomen for completion sake. Acute renal failure superimposed on CKD stage III: Per patient's family, his baseline creatinine is between 1.8 and 2. His creatinine today is 3.8. BUN is greater than 100. There is likely significant renal component. I will hold the diuretic. I will give IV fluids at 125 mL/h. Shortness of breath: Although previously given elevated BNP, it was thought to be related to a cardiac. I will order an echocardiogram for baseline. But I do not think his shortness of breath at this time is associated with congestive heart failure. Rather I think it was a component of significant weakness associated dehydration as well as his right-sided pleural effusion that seems to be recurrent. Pleural effusion with evidence of pleural plaque: This patient has a CT scan that shows a recurrent loculated effusion. A thoracentesis likely would not be a helpful at this time. He previously had an exudative effusion. He has a chemical research technician appointment and will likely need a CT surgery consultation eventually. At this time I would recommend following up with the outpatient chemical research technician and a more urgent consultation rather than keeping his appointment in May. Patient has a history of hypertension. His blood pressures are on the lower side right now likely exacerbated by his dehydration, weight loss. I am not sure if he will need the metoprolol or an adjusted dose. I will defer this to the primary team in the AM. Weakness: PT OT on board. Dysphagia: Speech therapy consulted. Code level DNR Telehealth: Statement Statement Telehealth Visit: Today's History and Physical is provided via interactive telehealth by Josh Castañeda MD.? Patient is located at [facility].? Provider is located at [facility].? Nursing staff assisted with the patient's exam. The visit being done today meets criteria for a telehealth visit and the patient or patient?s parent/guardian is aware the visit is a telehealth visit. Camera Start Time: 01:00 Camera End Time: 02:00
[2024-03-06 02:32] LABS: Lactate Dehydrogenase* 176 U/L (120-246)
[2024-03-06 03:25] LABS: Appearance Urine Slightly Cloudy (Clear); Bilirubin Urine Negative (Negative); Blood Urine Negative (Negative); Color Urine Yellow (Yellow); Glucose Urine Negative (Negative); Ketones Urine Negative (Negative); Leukocyte Esterase Urine Negative (Negative); Nitrite Urine Negative (Negative); Protein Urine 1+ (Negative); Urobilinogen Urine 0.2 (0.2-1.0)
[2024-03-06 03:34] LABS: Amorphous Sediment Urine Few; Bacteria Urine Many; Mucus Urine Few; RBC Urine 0-2 (0-2); Squamous Epithelial Cell Urine Few (None-Few); WBC Urine 0-2 (0-5)
[2024-03-06] MEDS: 0.9 % SODIUM CHLORIDE 1000 ml 1,000 ML 125 ML IV (04:57)
--- NOTE | 2024-03-06 06:19 | PC.NURSE ---
Arrived to floor at 0045 via wheelchair accompanied by daughter Alisa. Pt A&O pleasant and cooperative. VSS. Afebrile and pt denying pain. SOB noted w/ exertion and at rest. Takes pt quite a bit of time to recover after activity. Pt gets SOB while talking as well. Pt and daughter state this has been going on for >3months. Pt reports productive cough and newspaper writer noted cough with movement. Groin reddened and irritated. Navel reddened with some pus noted. Pt was unable to void in ED and reported no urge on the floor. Bladder scanned for over 650. Pt unable to void. Kuhn placed per orders. 950cc out on initial insertion. Up w/ SBA to commode d/t SOB. kuhn in place and draining.Using call light appropriately.
--- NOTE | 2024-03-06 07:54 | PM.IMPN1 ---
Progress Note: A&P Assessment and plan (1) Dyspnea: Problem details: - acute on chronic - ddx: infectious, inflammatory, pleural effusion, volume depletion, thrombosis less likely but given symptoms, will obtain CT PE with IVF hydration post imaging - no evidence of acute bleeding, Hgb stable. Did not feel better after IVFs, received one dose of Lasix this morning with good relief - given worsening of symptoms with activity, will cover with abx for CAP (may have infiltrate underlying effusion), low dose steroids - close monitoring of symptoms - RT following, has outpatient Pulmonology appt scheduled - TTE 03/06/24: Final Impressions: 1. Technically limited exam. 2. Normal LV size, normal wall thickness, normal global systolic function with an estimated EF of 60 - 65%. 3. Right ventricular cavity size is not well visualized. 4. The aortic valve is sclerotic, no stenosis and mild regurgitation. 5. Moderate tricuspid regurgitation. 6. Mildly increased estimated pulmonary pressures by tricuspid regurgitation velocity and right atrial pressure (49 mmHg plus RAP). 7. 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 Status: Acute (2) Acute renal failure superimposed on stage 3 chronic kidney disease: Problem details: - note that likely NOT MICKIE as per EPIC records, baseline creatinine between 2.7-3.9 over the past few years, so this is baseline - has kuhn in place, reassuring imaging - avoid nephrotoxins - continue diuresis as this improved breathing symptoms Status: Acute (3) Weight loss: Problem details: - unclear source, continue outpatient f/u with Dr. 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 Pablo, pathology negative for malignancy Status: Acute Plan - per above - updated at bedside, questions answered Subjective Date Seen: 03/06/24 Interval history: Jeff was admitted to the hospital last night for acute on chronic dyspnea, in addition to acute kidney injury. Imaging revealed a recurrent R pleural effusion with loculations, labs notable for creatinine 3.8 (baseline 2, recent creatinine of 3.5). Given MICKIE, his diuretics were held and low-dose IV fluid given. This morning, Jeff continues to note dyspnea, primarily with exertion. He is not symptomatic when laying in bed. No CP, no LE edema. No history of blood clots. Creatinine stable at 3.8. PH normal. Notably, had a thoracentesis with Dr. Pablo of general surgery earlier this month for 600mL of fluid. This was negative for malignancy. Exam Narrative: Exam Narrative: GEN: Alert, oriented, nontoxic, intermittent tachypnea but able to speak in 4-5 word phrases HEENT: EOMIs bilaterally, no scleral icterus CV: RRR, No concerning murmurs, difficult exam given tachypnea R: Tachypneic with RR 30, + retractions noted on initial exam. Upon reexamination after Lasix administration, he is laying in bed and more comfortable with RR 20-24 Ext: Thin extremities, no edema, negative Deepti sign bilaterally Skin: No concerning skin lesions or rashes on exposed skin Neuro: Nonfocal Psych: Appropriate Const: Vital Signs, click to edit/add: Vital Signs - 24 hr 03/05/24 19:57 03/05/24 21:04 03/05/24 22:00 Temperature 99.0 F Pulse Rate 63 Pulse Rate [Pulse Oximeter] 69 Respiratory Rate 18 Blood Pressure Blood Pressure [Le ft Arm] Blood Pressure [Le ft Upper Arm] 123/66 Pulse Oximetry 96 96 97 Oxygen Delivery Me thod Room Air 03/05/24 22:01 03/05/24 22:15 03/05/24 23:01 Temperature Pulse Rate 64 65 66 Pulse Rate [Pulse Oximeter] Respiratory Rate 18 16 Blood Pressure 106/50 L 127/56 L Blood Pressure [Le ft Arm] Blood Pressure [Le ft Upper Arm] Pulse Oximetry 95 95 96 Oxygen Delivery Me thod 03/06/24 00:00 03/06/24 02:49 03/06/24 03:22 Temperature Pulse Rate 65 65 65 Pulse Rate [Pulse Oximeter] Respiratory Rate 16 Blood Pressure Blood Pressure [Le ft Arm] Blood Pressure [Le ft Upper Arm] Pulse Oximetry 97 Oxygen Delivery Me thod Room Air 03/06/24 03:23 03/06/24 03:33 Temperature 98.1 F Pulse Rate Pulse Rate [Pulse Oximeter] 68 Respiratory Rate 30 H 30 H Blood Pressure Blood Pressure [Le ft Arm] 135/65 Blood Pressure [Le ft Upper Arm] Pulse Oximetry 96 96 Oxygen Delivery Me thod Room Air Room Air Labs Labs: Laboratory Results - last 24 hr 03/05/24 03/05/24 03/06/24 20:00 20:38 00:00 WBC 9.99 RBC 4.44 Hgb 11.5 L Hct 37.9 MCV 85 MCH 26 MCHC 30 L RDW Coeff of Lenore 15.5 Plt Count 331 Neut % (Auto) 83.0 H Lymph % (Auto) 6.6 L [place] % (Auto) 8.9 Eos % (Auto) 0.6 Baso % (Auto) 0.5 Neut # (Auto) 8.30 H Lymph # (Auto) 0.70 L [place] # (Auto) 0.90 Eos # (Auto) 0.06 Baso # (Auto) 0.05 Abs Immat Gran (auto) 0.04 Imm/Tot Granulo (auto) 0.4 Sodium 132 L Potassium 4.7 Chloride 99 Carbon Dioxide 20 Anion Gap 13 BUN 96 H Creatinine 3.8 H Estimated Creat Clear 11.55 Estimated GFR 15 Glucose 168 H Calcium 8.4 Total Bilirubin 0.6 AST 26 ALT 29 Alkaline Phosphatase 96 Lactate Dehydrogenase 176 C-Reactive Protein 3.5 H NT-Pro-B Natriuret Pep 4360 Total Protein 5.9 L Albumin 3.1 L Urine Color Urine Appearance Urine pH Ur Specific [place] Urine Protein Urine Glucose (UA) Urine Ketones Urine Blood Urine Nitrite Urine Bilirubin Urine Urobilinogen Ur Leukocyte Esterase Urine RBC Urine WBC Ur Squamous Epith Cells Amorphous Sediment Urine Bacteria Urine Mucus SARS-CoV-2 (PCR) Negative SARS-CoV-2 Influenza Type A (PCR) Negative PCR FLU A Influenza Type B (PCR) Negative PCR FLU B RSV (PCR) Negative PCR RSV POC Creatinine 4.2 H POC Troponin I 0.05 H 03/06/24 03:15 WBC RBC Hgb Hct MCV MCH MCHC RDW Coeff of Lenore Plt Count Neut % (Auto) Lymph % (Auto) [place] % (Auto) Eos % (Auto) Baso % (Auto) Neut # (Auto) Lymph # (Auto) [place] # (Auto) Eos # (Auto) Baso # (Auto) Abs Immat Gran (auto) Imm/Tot Granulo (auto) Sodium Potassium Chloride Carbon Dioxide Anion Gap BUN Creatinine Estimated Creat Clear Estimated GFR Glucose Calcium Total Bilirubin AST ALT Alkaline Phosphatase Lactate Dehydrogenase C-Reactive Protein NT-Pro-B Natriuret Pep Total Protein Albumin Urine Color Yellow Urine Appearance Slightly Cloudy A Urine pH 5.0 Ur Specific [place] 1.020 Urine Protein 1+ A Urine Glucose (UA) Negative Urine Ketones Negative Urine Blood Negative Urine Nitrite Negative Urine Bilirubin Negative Urine Urobilinogen 0.2 Ur Leukocyte Esterase Negative Urine RBC 0-2 Urine WBC 0-2 Ur Squamous Epith Cells Few Amorphous Sediment Few A Urine Bacteria Many A Urine Mucus Few A SARS-CoV-2 (PCR) Influenza Type A (PCR) Influenza Type B (PCR) RSV (PCR) POC Creatinine POC Troponin I
[2024-03-06 08:26] LABS: Albumin* 2.9 g/dL (3.3-5.0); Chloride* 102 mmol/L (96-114)
[2024-03-06 08:27] LABS: Potassium* 4.4 mmol/L (3.6-5.1); Sodium* 135 mmol/L (135-149)
[2024-03-06 08:29] LABS: Alkaline Phosphatase* 82 U/L (40-150); Anion Gap 13 mEq/L (7-15); Aspartate Amino Transferase* 22 U/L (12-35); Bilirubin Total* 0.6 mg/dL (0.1-1.5); Blood Urea Nitrogen* 94 mg/dL (7-30); Carbon Dioxide* 20 mmol/L (20-32); Creatine Kinase* 45 U/L (54-186); Creatinine* 3.8 mg/dL (0.5-1.5); Estimated Glomerular Filt Rate 15 ml/min; Glucose* 145 mg/dL (60-115); Total Protein* 5.6 g/dL (6.0-8.3)
[2024-03-06 08:30] LABS: Alanine Aminotransferase* 25 U/L (4-50); Uric Acid* 8.1 mg/dL (2.2-8.4)
[2024-03-06 08:40] LABS: Troponin I* 0.02 ng/mL (0.01-0.04)
[2024-03-06] MEDS: FUROSEMIDE 40 MG TABLET PO (10:02)
[2024-03-06 10:27] LABS: NT Pro B Type NatriureticPept* 4500 pg/mL
--- NOTE | 2024-03-06 11:32 | CRLHL7_ITS ---
For Patients: As a result of the Cures Act, medical imaging exams and procedure reports are released immediately into your electronic medical record. You may view this report before your referring provider. If you have questions, please contact your health care provider. INDICATION: Tachypnea. TECHNIQUE: Chest 1 views. COMPARISON: CT, March 05, 2024. FINDINGS: Cardiovascular and mediastinum: Heart size and vasculature are normal in caliber and appearance. Lungs and pleural spaces: Small right and trace left pleural effusions. Associated right basilar consolidation. No pneumothorax. Pleural calcifications. Bones and soft tissues: No significant findings. IMPRESSION: Persistent small right and trace left pleural effusions with associated right basilar consolidation. No significant change when compared to prior study. Dictated by Scott Granado MD @ 03/06/2024 1:54:21 PM (Electronically Signed)
[2024-03-06 11:34] LABS: HCO3 VBG 20 mmol/L (21-28); PCO2 VBG 37 mmHG (40-50); PO2 VBG < 30.1 mmHG (25-47); pH VBG 7.336 (7.32-7.43)
[2024-03-06] MEDS: PERFLUTREN LIPID MICROSPHERES 2 ML VIAL IVP (12:36)
[2024-03-06] MEDS: INSULIN ASPART 100 UNIT/ML SUBCUT ×3 (13:46→20:52)
--- NOTE | 2024-03-06 15:51 | CRLHL7_ITS ---
For Patients: As a result of the Century Cures Act, medical imaging exams and procedure reports are released immediately into your electronic medical record. You may view this report before your referring provider. If you have questions, please contact your health care provider. INDICATION: Increasing dyspnea. TECHNIQUE: CT chest PE was acquired with 95 cc Isovue 370 IV contrast. COMPARISON: None. FINDINGS: Heart and vasculature: Contrast opacification of the pulmonary arterial tree is adequate. No sign of pulmonary embolism. Heart size is borderline enlarged. Thoracic aorta is normal in caliber.Main pulmonary artery is enlarged measuring up to 30 2 millimeters in diameter, which can be seen the setting of pulmonary hypertension. Lungs and pleura: Dense bibasilar calcified pleural plaques. Bilateral medial calcified pleural plaques. Anterior pleural plaques are also noted. Moderate right-sided pleural effusion. Adjacent compressive atelectasis of the right lower lobe. Round atelectasis in the right lower lobe. Consolidation is also present in the left lower lobe, most consistent with round atelectasis. Lymph nodes/mediastinum: A few prominent mediastinal lymph nodes. No enrico mediastinal, hilar, or axillary adenopathy. Chest wall: No masses. Upper abdomen: No acute or significant findings. Renal atrophy is noted. Colonic diverticuli. Bones: Unremarkable for age. IMPRESSION: 1. no pulmonary embolism identified. 2. Moderate right-sided pleural effusion with adjacent compressive atelectasis of the right lower and middle lobes. 3. Diffuse pleural plaques in a pattern concerning for prior asbestos exposure. 4. Left lower lobe consolidation likely round atelectasis. Please note that all CT scans at this facility use dose modulation, iterative reconstruction, and/or weight-based dosing when appropriate to reduce radiation dose to as low as reasonably achievable. Dictated by Radha Herbert MD @ 03/06/2024 5:00:58 PM (Electronically Signed)
[2024-03-06] MEDS: cefTRIAXone 1 GM in 0.9 % SODIUM CHLORIDE Mini-bag 100 ML IVPB (16:57)
[2024-03-06] MEDS: AZITHROMYCIN 250 MG TABLET 500 MG PO (16:58)
--- NOTE | 2024-03-06 19:06 | PC.NURSE ---
Nursing Care Hours: [id number] Pt this shift calm and cooperative, alert and oriented. ?Tachypnea and SOB at rest present. ?VSS and on RA. ??Vazquez catheter patent. ?After Lasix given, not much increase in output, and output dark wilmer color. ?Pt c/o dry mouth. ?Encouraged to increase fluid intake. ?Flag Maker witnessed pt suddenly have difficulty with cough after a sip of water. ?When asked, pt admitted that this does happen sometimes. ?Reported incident to Dr. Ramos. ?Poor pedal pulses in bilat extremities, bilat feet cool, CMS intact. ?No c/o specific pain, but pt reports a general feeling of discomfort particularly in abdomen and low lungs stating it feels ?restricted?. Tolerating diet, Nutritional supplement given for breakfast. ?Insulin given per sliding scale. ?Intermittently tolerating regular meals, has low appetite. Ensure given x2. Educated on eating smaller and frequent meals or snacks throughout the day.
[2024-03-06] MEDS: METOPROLOL TARTRATE 100 MG TABLET PO (20:52)
[2024-03-06] MEDS: SODIUM CHLORIDE 0.9 % (FLUSH) 10 ML SYRINGE 5 ML IVF (20:53)
[2024-03-07] VITALS (8 sets, daily range): BP systolic 129–151; BP diastolic 52–74; PULSE 64–70; RESP 20–36; TEMP 36.6–36.8; O2SAT 92–97
--- NOTE | 2024-03-07 06:24 | PC.NURSE ---
End of shift [id number]: Pt AxOx4, cooperative, and pleasant.?Tachypnea improvement throughout the night. SOB on exertion. BM during the evening.?VSS and on RA. Vazquez catheter patent and draining. Encouraged to increase fluid intake and breathing techniques after exertion. Poor pedal pulses in bilat extremities, CMS intact. No pain during the shift. Tolerating diet, and Nutritional supplement well. ?Insulin given per sliding scale. Pt appears resting with call light in reach.
[2024-03-07 07:00] LABS: Basophils Percent Auto 0.3 % (0.0-3.0); Eosinophils Percent Auto 0.6 % (0.0-7.0); Hematocrit* 33.1 % (37.0-53.0); Hemoglobin* 10.3 gm/dL (13.5-17.5); Immature Granulocytes Pct Auto 0.3 %; Lymphocytes Percent Auto 4.8 % (20-44); Mean Corpuscular HGB Conc 31 gm/dL (32-36); Mean Corpuscular Hemoglobin 26 pg (26-34); Mean Corpuscular Volume 84 fL (80-100); Monocytes Percent Auto 7.9 % (0.0-11.0); Neutrophils Percent Auto 86.1 % (42.0-72.0); Platelet Count* 294 K/uL (140-440); RDW Coefficient of Variation % 15.8 % (11.5-15.5); Red Blood Count* 3.93 m/uL (4.30-5.90); White Blood Count* 11.26 K/uL (4.50-11.00)
[2024-03-07 07:05] LABS: Slide Review Reflex No
[2024-03-07 07:22] LABS: Chloride* 101 mmol/L (96-114); Sodium* 133 mmol/L (135-149)
[2024-03-07 07:23] LABS: Potassium* 4.1 mmol/L (3.6-5.1)
[2024-03-07 07:25] LABS: Creatinine* 3.6 mg/dL (0.5-1.5); Estimated Glomerular Filt Rate 16 ml/min
[2024-03-07 07:26] LABS: Anion Gap 11 mEq/L (7-15); Blood Urea Nitrogen* 93 mg/dL (7-30); Calcium* 8.1 mg/dL (8.4-10.6); Carbon Dioxide* 21 mmol/L (20-32)
[2024-03-07 07:42] LABS: Glucose* 209 mg/dL (60-115)
[2024-03-07] MEDS: INSULIN ASPART 100 UNIT/ML SUBCUT ×4 (09:25→20:53)
[2024-03-07] MEDS: SODIUM CHLORIDE 0.9 % (FLUSH) 10 ML SYRINGE 5 ML IVF ×2 (09:26→20:51)
[2024-03-07] MEDS: predniSONE 20 MG TABLET PO (09:26)
[2024-03-07] MEDS: METOPROLOL TARTRATE 100 MG TABLET PO ×2 (09:26→20:50)
--- NOTE | 2024-03-07 11:18 | PC.SOCIAL ---
Addendum entered and electronically signed by AMBER Dominguez 03/07/24 15:47: Discharge planning: cathead worker also sent a referral to Becky at [facility]. They can possibly open the pt for shelter and GUTTER INSTALLER right away, but PT/OT would be scheduled out a week due to staffing. The provider on duty was okay with the PT/OT delay. Social work to follow-up as needed. Addendum entered and electronically signed by AMBER Dominguez 03/07/24 15:39: Discharge planning: cathead worker also sent a referral to [facility] whom shared they are not able to accept the pt at this time either due to staffing availability. Social work to follow-up as needed. Addendum entered and electronically signed by AMBER Dominguez 03/07/24 11:41: Discharge planning: [facility] is at capacity and cannot accept the pt's referral at this time. cathead worker will start to contact other home care agencies. Social work to follow-up as needed. Addendum entered and electronically signed by AMBER Dominguez 03/07/24 11:28: Discharge planning: cathead worker sent a referral to [facility] via fax at #[phone]. Social work to follow-up as needed. Original Note: Discharge planning: cathead worker and social work business intern met with pt and his daughter today to discuss discharge planning. Pt is being recommended for home care including PT/OT, GUTTER INSTALLER and shelter. Pt and his daughter would like this worker to look into [facility] since pt's PCP is through [facility]. If [facility] does not have openings the pt and his daughter are okay with this social service technician looking into different home care agencies that may have an opening that can accommodate the pt's needs. Pt will most likely be discharging home today from the hospital and does live with his daughter. Social work to follow-up as needed.
--- NOTE | 2024-03-07 13:01 | P.IMPN_ITS ---
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 Did not feel better after IVFs - negative CT for PE, reassuring TTE - abx for CAP and low dose steroids initiated 03/06 - RT following, has outpatient Pulmonology appt scheduled in May - 03/07: reviewed case with Dr. Andrade of Pulmonology; he recommends adding in prn DuoNebs, continuing IS, abx, steroids, adding Anoro if not cost prohibitive - TTE 03/06/24: Final Impressions: 1. Technically limited exam. 2. Normal LV size, normal wall thickness, normal global systolic function with an estimated EF of 60 - 65%. 3. Right ventricular cavity size is not well visualized. 4. The aortic valve is sclerotic, no stenosis and mild regurgitation. 5. Moderate tricuspid regurgitation. 6. Mildly increased estimated pulmonary pressures by tricuspid regurgitation velocity and right atrial pressure (49 mmHg plus RAP). 7. 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 Status: Acute (2) UTI (urinary tract infection): Problem details: - Enterococcus on 03/06 culture, will transition from Ceftriaxone/Azithromycin to Amoxicillin to cover CAP/UTI Status: Acute (3) Acute renal failure superimposed on stage 3 chronic kidney disease: Problem details: - note that likely NOT MICKIE as per EPIC records, baseline creatinine between 2.7-3.9 over the past few years, so this is baseline - has kuhn in place, reassuring imaging - avoid nephrotoxins - continue diuresis as this improved breathing symptoms Status: Acute (4) Weight loss: Problem details: - unclear source, continue outpatient f/u with Dr. 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 Pablo, pathology negative for malignancy Status: Acute Plan - per above - working with therapies - possibly home with home health on 03/08 - reviewed plan of care with daughter, considering comfort-focused measures at home Subjective Date Seen: 03/07/24 Interval history: Jeff was admitted to the hospital on 03/05 for acute on chronic dyspnea, in the setting of weight loss. Imaging revealed a recurrent R pleural effusion with loculations, creatinine baseline at 3.5-3.8 Had a thoracentesis with Dr. Pablo of General Surgery in early February for 600mL of fluid, pathology negative. Since admission: - added abx for possible CAP - low dose Prednisone - IS - reassuring TTE, CT chest notable for pleural effusion and atelectasis, no PE Jeff is mildly improved this morning, continues to have FLOREZ. No symptoms while in bed. Creatinine stable at 3.6, Hgb baseline. No tachycardia, BP age appropriate. Exam Narrative: Exam Narrative: GEN: Alert and oriented, sitting comfortably in a chair, able to speak in full sentences HEENT: EOMIs bilaterally, no scleral icterus CV: Regular rate and rhythm R: Coarse rales right base, no wheezing. No tachypnea during my exam Ext: Extremities are thin Skin: No concerning skin lesions or rashes on exposed skin Neuro: No focal deficits or resting tremor Psych: Appropriate Const: Vital Signs, click to edit/add: Vital Signs - 24 hr 03/06/24 15:00 03/06/24 15:00 03/06/24 15:00 Temperature Pulse Rate 77 Pulse Rate [Pulse Oximeter] 73 73 Respiratory Rate 30 H 30 H Blood Pressure [Le ft Arm] Blood Pressure [Ri ght Arm] 150/72 H Pulse Oximetry 96 Oxygen Delivery Me thod Room Air 03/06/24 16:52 03/06/24 19:00 03/06/24 21:38 Temperature 97.4 F L Pulse Rate 77 Pulse Rate [Pulse Oximeter] 77 Respiratory Rate 31 H 31 H Blood Pressure [Le ft Arm] Blood Pressure [Ri ght Arm] 143/59 H Pulse Oximetry 98 Oxygen Delivery Me thod Room Air 03/06/24 23:00 03/06/24 23:00 03/07/24 03:00 Temperature 98.3 F 98 F Pulse Rate 70 Pulse Rate [Pulse Oximeter] 71 64 Respiratory Rate 20 20 Blood Pressure [Le ft Arm] 134/63 136/74 Blood Pressure [Ri ght Arm] Pulse Oximetry 94 92 Oxygen Delivery Me thod Room Air Room Air 03/07/24 07:04 03/07/24 07:51 03/07/24 07:51 Temperature 98.2 F Pulse Rate 64 Pulse Rate [Pulse Oximeter] 65 Respiratory Rate 20 20 Blood Pressure [Le ft Arm] Blood Pressure [Ri ght Arm] 130/68 Pulse Oximetry 93 Oxygen Delivery Me thod Room Air 03/07/24 10:40 Temperature 98.0 F Pulse Rate Pulse Rate [Pulse Oximeter] 64 Respiratory Rate 36 H Blood Pressure [Le ft Arm] Blood Pressure [Ri ght Arm] 134/61 Pulse Oximetry 96 Oxygen Delivery Me thod Room Air Labs Labs: Laboratory Results - last 24 hr 03/07/24 05:59 WBC 11.26 H RBC 3.93 L Hgb 10.3 L Hct 33.1 L MCV 84 MCH 26 MCHC 31 L RDW Coeff of Lenore 15.8 H Plt Count 294 Neut % (Auto) 86.1 H Lymph % (Auto) 4.8 L Merrick % (Auto) 7.9 Eos % (Auto) 0.6 Baso % (Auto) 0.3 Neut # (Auto) 9.70 H Lymph # (Auto) 0.50 L Merrick # (Auto) 0.90 Eos # (Auto) 0.10 Baso # (Auto) 0.00 Abs Immat Gran (auto) 0.00 Imm/Tot Granulo (auto) 0.3 Sodium 133 L Potassium 4.1 Chloride 101 Carbon Dioxide 21 Anion Gap 11 BUN 93 H Creatinine 3.6 H Estimated Creat Clear 12.00 Estimated GFR 16 Glucose 209 H Calcium 8.1 L
[2024-03-07] MEDS: AMOXICILLIN 250 MG CAPSULE 500 MG PO ×2 (15:44→20:50)
--- NOTE | 2024-03-07 18:39 | PC.NURSE ---
Pt alert and oriented. Pt maintained saturations above 90% on RA. Pt has SOB with exertion and after activity. Pt had no complaints of pain. Pt up with assist of one with gait belt and walker. Pt had evaluation with Speech therapy and is to be on mildly thickened liquids and no straws.?
[2024-03-07] MEDS: ROSUVASTATIN CALCIUM 10 MG TABLET PO (20:50)
[2024-03-08] VITALS (8 sets, daily range): BP systolic 127–165; BP diastolic 59–74; PULSE 60–71; RESP 18–38; TEMP 36.4–37; O2SAT 93–96
[2024-03-08] MEDS: ACETAMINOPHEN 325 MG TABLET 650 MG PO (05:45)
--- NOTE | 2024-03-08 06:15 | PC.NURSE ---
End of shift [id number]: Pt AxOx4, cooperative, and pleasant. Pt maintained saturations above 90% on RA. Pt has SOB with exertion and after activity. Pt requested PRN Tylenol this am for headache and abd pain. Pt had evaluation with Speech therapy and is to be on mildly thickened liquids and no straws. Vazquez patent and draining.?Pt appears resting with call light in reach.
[2024-03-08 06:25] LABS: HCO3 VBG 23 mmol/L (21-28); PCO2 VBG 37 mmHG (40-50); PO2 VBG 48.5 mmHG (25-47); pH VBG 7.411 (7.32-7.43)
[2024-03-08 06:29] LABS: Hematocrit* 32.9 % (37.0-53.0); Hemoglobin* 10.3 gm/dL (13.5-17.5); Immature Granulocytes Pct Auto 1.1 %; Lymphocytes Percent Auto 3.5 % (20-44); Mean Corpuscular HGB Conc 31 gm/dL (32-36); Mean Corpuscular Hemoglobin 26 pg (26-34); Mean Corpuscular Volume 84 fL (80-100); Monocytes Percent Auto 6.6 % (0.0-11.0); Neutrophils Percent Auto 88.8 % (42.0-72.0); Platelet Count* 285 K/uL (140-440); RDW Coefficient of Variation % 15.7 % (11.5-15.5); Red Blood Count* 3.93 m/uL (4.30-5.90); White Blood Count* 12.21 K/uL (4.50-11.00)
[2024-03-08 06:33] LABS: Slide Review Reflex No
[2024-03-08 06:42] LABS: Chloride* 96 mmol/L (96-114); Potassium* 4.3 mmol/L (3.6-5.1); Sodium* 126 mmol/L (135-149)
[2024-03-08 06:45] LABS: Anion Gap 9 mEq/L (7-15); Blood Urea Nitrogen* 102 mg/dL (7-30); Carbon Dioxide* 21 mmol/L (20-32); Creatinine* 3.4 mg/dL (0.5-1.5); Estimated Glomerular Filt Rate 17 ml/min
[2024-03-08 07:09] LABS: Est. Creatinine Clearance* 12.96
[2024-03-08 07:11] LABS: Glucose* 363 mg/dL (60-115)
[2024-03-08] MEDS: predniSONE 20 MG TABLET PO (07:49)
[2024-03-08] MEDS: FUROSEMIDE 20 MG TABLET PO (07:49)
[2024-03-08] MEDS: INSULIN ASPART 100 UNIT/ML SUBCUT ×3 (07:49→19:57)
--- NOTE | 2024-03-08 09:29 | CRLHL7_ITS ---
For Patients: As a result of the Century Cures Act, medical imaging exams and procedure reports are released immediately into your electronic medical record. You may view this report before your referring provider. If you have questions, please contact your health care provider. INDICATION: HEADACHE, NAUSEA/VOMITING. TECHNIQUE: Head CT without contrast. COMPARISON: None. FINDINGS: CSF spaces: Within normal limits for age. Brain parenchyma and extra-axial spaces: Along the left frontal convexity, there is dural-based dome-shaped mass which measures approximately 2.8 x 1.2 cm, as measured in the coronal plane (11/07). There is mild mass effect on the underlying frontal lobe parenchyma without discrete parenchymal hypointensity to indicate edema. There is minimal remodeling of the overlying calvarium. There are nonspecific low attenuation white matter changes consistent with chronic microvascular disease. No sign of mass, hemorrhage, or midline shift. Skull base and calvarium: [id number] scattered mucosal thickening in the paranasal sinuses, most pronounced in the left anterior ethmoid air cells. Mastoid air cells are clear. The visualized orbits are grossly unremarkable. No skull fractures. IMPRESSION: 1. No acute intracranial hemorrhage or high-grade mass effect. The basal cisterns are widely patent. No midline shift. 2. Left frontal convexity dural-based mass measures approximately 2.8 cm, and is favored to reflect a meningioma. There is mild mass effect of the underlying parenchyma without discrete evidence of parenchymal edema by CT, though this could be further characterized with an MRI brain without and with contrast. Please note that all CT scans at this facility use dose modulation, iterative reconstruction, and/or weight-based dosing when appropriate to reduce radiation dose to as low as reasonably achievable. Dictated by Blayne Carr MD @ 03/08/2024 10:40:00 AM (Electronically Signed)
--- NOTE | 2024-03-08 10:46 | CRLHL7_ITS ---
For Patients: As a result of the Century Cures Act, medical imaging exams and procedure reports are released immediately into your electronic medical record. You may view this report before your referring provider. If you have questions, please contact your health care provider. INDICATION: Headaches. Mass on CT. TECHNIQUE: Brain MRI with and without contrast. 20 cc gadolinium based contrast administered. COMPARISON: Head CT from 03/08/2024. FINDINGS: Oval enhancing extra-axial mass along the left high frontal convexity which measures 31 millimeters in AP dimension, 19 millimeters in TR dimension, and 15 millimeters in CC dimension. Internal diffusion restriction likely due to high cellularity. Local mass effect without parenchymal edema. 7 millimeter enhancing extra-axial mass along the right high frontal parasagittal convexity, series 1001, image 25. No significant mass effect or parenchymal edema. 7 millimeter enhancing extra-axial mass along the anterior falx, series 1001, image 62. No significant mass effect or parenchymal edema. No evidence of acute ischemia. Foci of susceptibility artifact left mid centrum semiovale, vermis and left cerebellar tonsil, compatible with microhemorrhages, or in the case of the left tonsillar focus, a cavernoma. Scattered FLAIR hyperintensities within the supratentorial white matter and brainstem, typical for chronic microvascular ischemic change. A few tiny chronic basal ganglia lacunar infarcts. No hydrocephalus or extra-axial collections. The pituitary gland, parasellar structures and optic chiasm are normal. 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 All the major intracranial vascular structures demonstrate normal flow-related signal. The orbital contents are normal. No calvarial or skull base marrow signal abnormality. Mild paranasal sinus mucosal thickening. No extracranial soft tissue findings. IMPRESSION: 1. No acute ischemia or other acute intracranial pathology. 2. Dominant meningioma along the left high frontal convexity measuring up to 31 millimeters. Local mass effect without parenchymal edema. Smaller meningiomas are also present along the right high frontal convexity and anterior falx. 3. Mild chronic microvascular ischemic changes. A few tiny chronic basal ganglia lacunar infarcts. 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 4. Few microhemorrhages. A small left tonsillar cavernoma. Dictated by Aramis Bravo MD @ 03/08/2024 1:07:35 PM (Electronically Signed)
[2024-03-08] MEDS: MORPHINE 2 MG/ML inj IVP ×3 (11:30→16:08)
--- NOTE | 2024-03-08 11:31 | P.IMPN_ITS ---
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 Did not feel better after IVFs - negative CT for PE, reassuring TTE - abx for CAP and low dose steroids initiated 03/06 - RT following, has outpatient Pulmonology appt scheduled in May - 03/07: reviewed case with Dr. Andrade of Pulmonology; he recommends adding in prn DuoNebs, continuing IS, abx, steroids, adding Anoro if not cost prohibitive - TTE 03/06/24: Final Impressions: 1. Technically limited exam. 2. Normal LV size, normal wall thickness, normal global systolic function with an estimated EF of 60 - 65%. 3. Right ventricular cavity size is not well visualized. 4. The aortic valve is sclerotic, no stenosis and mild regurgitation. 5. Moderate tricuspid regurgitation. 6. Mildly increased estimated pulmonary pressures by tricuspid regurgitation velocity and right atrial pressure (49 mmHg plus RAP). 7. 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 Status: Acute (2) CKD (chronic kidney disease) stage 4, GFR 15-29 ml/min: Problem details: - baseline creatinine 3.5-3.8 Status: Acute (3) UTI (urinary tract infection): Problem details: - Enterococcus on 03/06 culture, transitioned from Ceftriaxone/Azithromycin to Amoxicillin on 03/06/24 to cover CAP/UTI Status: Acute (4) Weight loss: Problem details: - unclear source, continue outpatient f/u with Dr. 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 Pablo, pathology negative for malignancy Status: Acute (8) Meningioma: Problem details: - noted on 03/08/24 imaging - per EPIC chart review, was seen for this in 2019 and 2008 (although I am unable to see previous imaging or size discussion) - per Neurosurgery, appears stable and unlikely primary cause of headache Status: Acute Plan - per above - daughter updated at bedside, questions answered - too ill to work with therapies today, will consider home with HH when medically stable/appropriate Subjective Date Seen: 03/08/24 Interval history: Jeff was admitted to the hospital on 03/05 for acute on chronic dyspnea, in the setting of weight loss. Imaging revealed a recurrent R pleural effusion with loculations, creatinine baseline at 3.5-3.8 Had a thoracentesis with Dr. Pablo of General Surgery in early February for 600mL of fluid, pathology negative. Since admission: - added abx for possible CAP + low dose Prednisone - IS and nebs - reassuring TTE, CT chest notable for pleural effusion and atelectasis, no PE - CKD stable with Today, sodium lower at 126 but corrects to 132 for hyperglycemia. This morning, Jeff feels poorly with a headache. Head CT reveals small L frontal mass; MRI report below. Reviewed with [facility]sug[facility]; does not appear to be a chronic concern. Recommend symptom management, outpatient f/u. IMPRESSION: 1. No acute ischemia or other acute intracranial pathology. 2. Dominant meningioma along the left high frontal convexity measuring up to 31 millimeters. Local mass effect without parenchymal edema. Smaller meningiomas are also present along the right high frontal convexity and anterior falx. 3. Mild chronic microvascular ischemic changes. A few tiny chronic basal ganglia lacunar infarcts. 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 4. Few microhemorrhages. A small left tonsillar cavernoma. Dictated by Aramis Bravo MD @ 03/08/2024 1:07:35 PM Exam Narrative: Exam Narrative: GEN: Alert and oriented, appears to not feel well today HEENT: PERRL and EOMIs bilaterally, no scleral icterus CV: RRR, No concerning murmurs R: LCTA bilaterally without concerning wheezing Ext: wwp, no concerning edema Skin: No concerning skin lesions or rashes on exposed skin Neuro: No focal deficits or resting tremor Psych: Appropriate Const: Vital Signs, click to edit/add: Vital Signs - 24 hr 03/07/24 15:05 03/07/24 15:10 03/07/24 19:00 Temperature 97.8 F 98 F Pulse Rate [Pulse Oximeter] 70 69 Respiratory Rate 32 H 32 H 24 Blood Pressure [Ri ght Arm] 151/72 H 129/58 L Pulse Oximetry 92 97 Oxygen Delivery Me thod Room Air Room Air 03/07/24 23:00 03/08/24 03:00 03/08/24 07:41 Temperature 98.3 F 97.8 F 97.5 F L Pulse Rate [Pulse Oximeter] 65 60 61 Respiratory Rate 20 26 H 30 H Blood Pressure [Ri ght Arm] 132/52 L 157/68 H 165/72 H Pulse Oximetry 96 96 96 Oxygen Delivery Me thod Room Air Room Air Room Air Labs Labs: Laboratory Results - last 24 hr 03/08/24 05:58 WBC 12.21 H RBC 3.93 L Hgb 10.3 L Hct 32.9 L MCV 84 MCH 26 MCHC 31 L RDW Coeff of Lenore 15.7 H Plt Count 285 Neut % (Auto) 88.8 H Lymph % (Auto) 3.5 L Carver % (Auto) 6.6 Eos % (Auto) 0.0 Baso % (Auto) 0.0 Neut # (Auto) 10.80 H Lymph # (Auto) 0.40 L Carver # (Auto) 0.80 Eos # (Auto) 0.00 Baso # (Auto) 0.00 Abs Immat Gran (auto) 0.10 Imm/Tot Granulo (auto) 1.1 VBG pH 7.411 VBG pCO2 37 L VBG pO2 48.5 H VBG HCO3 23 Sodium 126 L Potassium 4.3 Chloride 96 Carbon Dioxide 21 Anion Gap 9 BUN 102 H Creatinine 3.4 H Estimated Creat Clear 12.96 Estimated GFR 17 Glucose 363 H* Calcium 8.0 L
[2024-03-08] MEDS: dexAMETHasone 10 MG/ML inj IVP (11:37)
[2024-03-08] MEDS: SODIUM CHLORIDE 0.9 % (FLUSH) 10 ML SYRINGE 5 ML IVF ×3 (11:40→22:55)
[2024-03-08] MEDS: AMOXICILLIN 250 MG CAPSULE 500 MG PO ×2 (14:00→21:09)
--- NOTE | 2024-03-08 14:10 | PC.SOCIAL ---
Discharge planning: Home care orders have been put on hold with [facility]. due to pt needing further medical care in the hospital before discharge. Social work to follow-up as needed.
--- NOTE | 2024-03-08 18:45 | PC.NURSE ---
Shift (11-27)- Pt alert and oriented at beginning of shift. Pt had complaints of headache and stomach pain. Pt diaphoretic and pale.Pt's blood sugar elevated. MD updated and assessed Pt. New orders added; see EMAR. Stat CT and MRI ordered; see results for report. Pt's VS were stable. Pt was on bed rest today; Therapies cancelled per MD. Medications held per MD; see chart. Pt's Vazquez in place, patent and draining. Pt did not eat meals but did tolerate some protein shake. Pt is on moderately thickened liquids and no straws. Pt's daughter at bedside mid day. Pt had complaints of pain ranging 6-10; see EMAR for intervention.
[2024-03-08] MEDS: METOPROLOL TARTRATE 100 MG TABLET PO (21:09)
[2024-03-08] MEDS: ROSUVASTATIN CALCIUM 10 MG TABLET PO (21:09)
--- NOTE | 2024-03-08 22:22 | PC.NURSE ---
(Shift [id number]) Pt had a better evening that morning. Pt VSS. A&O. Bedrest. Vazquez cath in intact and patent. Urine clear/yellow. Encouraged pt to drink mod. thick fluids. Had a salad and sherbert for dinner and ate 100% and tolerated well. Was able to take HS meds whole with applesauce with no difficulties. Alot of family members in and out to visit pt. c/o headache with a rating of 2/10 but dissipated towards the end of the night. Did not c/o SOB.
[2024-03-09 04:25] VITALS: BP 126/61; PULSE 61; RESP 14; TEMP 36.7; O2SAT 93
[2024-03-09 06:26] LABS: Hematocrit* 34.3 % (37.0-53.0); Hemoglobin* 10.6 gm/dL (13.5-17.5); Immature Granulocytes Abs Auto 0.02 K/uL (0.00-0.30); Immature Granulocytes Pct Auto 0.2 %; Lymphocytes Percent Auto 2.8 % (20-44); Mean Corpuscular HGB Conc 31 gm/dL (32-36); Mean Corpuscular Hemoglobin 26 pg (26-34); Mean Corpuscular Volume 84 fL (80-100); Monocytes Percent Auto 2.3 % (0.0-11.0); Neutrophils Percent Auto 94.7 % (42.0-72.0); Platelet Count* 305 K/uL (140-440); RDW Coefficient of Variation % 15.7 % (11.5-15.5); Red Blood Count* 4.07 m/uL (4.30-5.90)
[2024-03-09 06:27] LABS: Slide Review Reflex No
--- NOTE | 2024-03-09 06:37 | PC.NURSE ---
Addendum entered by Shraddha Santacruz 03/09/24 07:29: Pt had low urine output overnight, [facility] Villeda called and updated MD Castañeda, no new orders given, continued plan of care. MD Ramos updated. Original Note: Pt alert and oriented x3. Afebrile. Pt denies pain, chest pain, SOB, and N/V. Pt?s kuhn is patent and draining. Pt was turned and repositioned throughout night. ?
[2024-03-09 06:38] LABS: Chloride* 96 mmol/L (96-114); Potassium* 5.2 mmol/L (3.6-5.1); Sodium* 128 mmol/L (135-149)
[2024-03-09 06:41] LABS: Anion Gap 11 mEq/L (7-15); Blood Urea Nitrogen* 108 mg/dL (7-30); Calcium* 8.1 mg/dL (8.4-10.6); Carbon Dioxide* 21 mmol/L (20-32); Creatinine* 3.6 mg/dL (0.5-1.5); Est. Creatinine Clearance* 12.39; Estimated Glomerular Filt Rate 16 ml/min
[2024-03-09 07:00] VITALS: BP 129/59; PULSE 60; RESP 16; TEMP 36.7; O2SAT 93
[2024-03-09 07:19] LABS: Glucose* 406 mg/dL (60-115)
[2024-03-09] MEDS: FUROSEMIDE 20 MG TABLET PO (08:11)
[2024-03-09] MEDS: INSULIN ASPART 100 UNIT/ML SUBCUT ×2 (08:11→12:16)
[2024-03-09] MEDS: predniSONE 20 MG TABLET PO (08:11)
[2024-03-09] MEDS: INSULIN GLARGINE,HUM.REC.ANLOG 100 UNIT/ML INSULN.PEN SUBCUT (08:12)
[2024-03-09] MEDS: AMOXICILLIN 250 MG CAPSULE 500 MG PO (10:16)
[2024-03-09] MEDS: SODIUM CHLORIDE 0.9 % (FLUSH) 10 ML SYRINGE 5 ML IVF (10:17)
[2024-03-09] MEDS: METOPROLOL TARTRATE 100 MG TABLET PO (10:17)
[2024-03-09] MEDS: IPRAT-ALBUT 0.5-2.5 MG/3 ML NEB 1 NEB IH (10:28)
--- NOTE | 2024-03-09 12:42 | PC.SOCIAL ---
Addendum entered and electronically signed by AMBER Dominguez 03/09/24 16:31: Discharge planning: [facility] [email or web address], per her request. Social work to follow-up as needed. Original Note: Discharge planning: Pt is ready for discharge home today. [facility] the pt for home care services of PT/OT, long-term and home health aide. washtub worker notified pt's daughter, Alisa, and she was actually already in contact with [facility]. about setting up a time for the nurse to come out to their home for the intake/assessment meeting. Pt's daughter was thankful for the assistance. Social work to follow-up as needed.
--- NOTE | 2024-03-09 14:13 | PM.DS1 ---
DS: Providers Provider Date Seen: 03/09/24 Date of admission: 03/06/24 01:39 Primary care physician: Tony Escobar MD Admitting Clinician: Cate Rabago MD Consults: Nutrition, OT, PT, RT, SW Attending Physician on discharge: Aracelis Ramos MD Date of Discharge: 03/09/24 DS: Diagnosis Discharge Diagnosis (1) Dyspnea: Status: Acute Problem details: - acute on chronic, known asbestos exposure - no hypoxia, no tachycardia - ddx: chronic asbestosis infectious, inflammatory, pleural effusion, volume depletion, thrombosis - no evidence of acute bleeding, Hgb stable. Pleural effusion stable and wasn't improved after thoracentesis in early February. Did not feel better after IVFs - negative CT for PE, reassuring TTE - abx for CAP and low dose steroids initiated 03/06 - RT following, has outpatient Pulmonology appt scheduled in May - 03/07: reviewed case with Dr. Andrade of Pulmonology; he recommends adding in prn DuoNebs, continuing IS, abx, steroids, adding Anoro if not cost prohibitive - seemed to have symptom improvement with nebs - TTE 03/06/24: Final Impressions: 1. Technically limited exam. 2. Normal LV size, normal wall thickness, normal global systolic function with an estimated EF of 60 - 65%. 3. Right ventricular cavity size is not well visualized. 4. The aortic valve is sclerotic, no stenosis and mild regurgitation. 5. Moderate tricuspid regurgitation. 6. Mildly increased estimated pulmonary pressures by tricuspid regurgitation velocity and right atrial pressure (49 mmHg plus RAP). 7. 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 (2) CKD (chronic kidney disease) stage 4, GFR 15-29 ml/min: Status: Acute Problem details: - baseline creatinine 3.5-3.8 (3) IDDM (insulin dependent diabetes mellitus): Status: Acute Problem details: - last A1C 6.9 - hyperglycemia during stay (presumably iatrogenic from steroids), continue home insulin, has DexCom for monitoring (4) UTI (urinary tract infection): Status: Acute Problem details: - Enterococcus on 03/06 culture, transitioned from Ceftriaxone/Azithromycin to Amoxicillin on 03/06/24 to cover CAP/UTI (5) Weight loss: Status: Acute Problem details: - unclear source, continue outpatient f/u with Dr. 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 Pablo, pathology negative for malignancy (9) Meningioma: Status: Acute Problem details: - noted on 03/08/24 imaging - per [facility] chart review, was seen for this in 2018 and 2008 (although I am unable to see previous imaging or size discussion) - per Neurosurgery (phone discussion 03/08), appears stable and unlikely primary cause of headache DS: Summary Hospital Course Hospital Course: Jeff was admitted to the hospital on 03/05 for acute on chronic dyspnea. Also noted to have weakness and weight loss, in addition to urinary retention. Vazquez plaved On admission: imaging revealed a recurrent R pleural effusion with loculations, creatinine baseline at 3.5-3.8 Had a thoracentesis with Dr. Pablo of General Surgery two weeks prior to admission for 600mL of fluid, pathology negative. Management during stay: - added abx for possible CAP + low dose Prednisone - IS and nebs - reassuring TTE, CT chest notable for pleural effusion and atelectasis, no PE - Pulmonology consulted by phone, recommendations above - CKD stable with creatinine 3.4-3.8 during stay - head CT/MRI done for headache; noted to have stable meningioma on imaging Status at Discharge Overall status at discharge: patient is not back to baseline Time Spent with Patient Time attestation: Total time spent providing and/or coordinating discharge services: Time spent: Greater than 30 minutes Specific discharge activities: Medication management and reconciliation, updates to pt/family, HH orders Exam Narrative: Exam Narrative: GEN: Alert and oriented, sitting comfortably in bed. Appears chronically ill but nontoxic HEENT: EOMIs bilaterally, no scleral icterus CV: RRR, No concerning murmurs R: LCTA bilaterally without concerning wheezing, not tachypneic while resting Ext: wwp, no concerning edema Skin: No concerning skin lesions or rashes on exposed skin Neuro: Nonfocal Psych: Appropriate Const: Vital Signs, click to edit/add: Vital Signs - 24 hr 03/08/24 15:00 03/08/24 15:00 03/08/24 19:00 Temperature 97.8 F 97.6 F Pulse Rate [Pulse Oximeter] 64 64 71 Respiratory Rate 20 20 20 Blood Pressure [Le ft Arm] Blood Pressure [Ri ght Arm] 147/74 H 139/59 L Pulse Oximetry 94 94 Oxygen Delivery Me thod Room Air Room Air 03/08/24 23:40 03/08/24 23:47 03/09/24 04:25 Temperature 98.6 F 98.0 F Pulse Rate [Pulse Oximeter] 66 66 61 Respiratory Rate 18 20 14 Blood Pressure [Le ft Arm] 127/59 L 126/61 Blood Pressure [Ri ght Arm] Pulse Oximetry 93 93 Oxygen Delivery Me thod Room Air Room Air 03/09/24 07:00 03/09/24 07:00 Temperature 98.1 F Pulse Rate [Pulse Oximeter] 60 60 Respiratory Rate 16 16 Blood Pressure [Le ft Arm] Blood Pressure [Ri ght Arm] 129/59 L Pulse Oximetry 93 Oxygen Delivery Me thod Room Air DS: Data Data Completed and Pending Labs on day of discharge: Labs from last 24 hours 03/09/24 06:06 WBC 9.70 RBC 4.07 L Hgb 10.6 L Hct 34.3 L MCV 84 MCH 26 MCHC 31 L RDW Coeff of Lenore 15.7 H Plt Count 305 Neut % (Auto) 94.7 H Lymph % (Auto) 2.8 L [place] % (Auto) 2.3 Eos % (Auto) 0.0 Baso % (Auto) 0.0 Neut # (Auto) 9.20 H Lymph # (Auto) 0.30 L [place] # (Auto) 0.20 Eos # (Auto) 0.00 Baso # (Auto) 0.00 Abs Immat Gran (auto) 0.02 Imm/Tot Granulo (auto) 0.2 Sodium 128 L Potassium 5.2 H Chloride 96 Carbon Dioxide 21 Anion Gap 11 BUN 108 H Creatinine 3.6 H Estimated Creat Clear 12.39 Estimated GFR 16 Glucose 406 H* Calcium 8.1 L Preliminary micro results at discharge 03/05/24 23:10 Blood Culture - Preliminary Blood NO GROWTH AFTER 72 HOURS Discharge Plan Discharge Disposition: Home, Self-Care Date of Admission: 03/06/24 01:39 Attending Provider on Discharge: Aracelis Ramos Discharge Medications: New (DME) nebulizer and compressor Device See Rx Instructions .Route Qty: 1 0RF Rx Instructions: As directed. Please provide nebulizer and accessories - any brand covered by insurance ipratropium-albuterol 0.5 mg-3 mg(2.5 mg base)/3 mL Solution For Nebulization 3 ml inhalation Q2H PRNQty: 90 1RF amoxicillin 500 mg tablet 500 mg PO Q8H 3 Days Qty: 9 0RF Continued cholecalciferol (vitamin D3) 50 mcg (2,000 unit) capsule 50 mcg PO DAILY furosemide 20 mg tablet 20 mg PO DAILY metoprolol tartrate [Lopressor] 100 mg tablet 100 mg PO BID rosuvastatin 10 mg tablet 10 mg PO HS albuterol sulfate 90 mcg/actuation HFA aerosol inhaler 1 - 2 puff INHALATION Q4H PRN (Reason: wheezing) insulin glargine [Lantus Solostar U-100 Insulin] 100 unit/mL (3 mL) insulin pen 9 unit subcut QPM Discontinued terbinafine HCl 250 mg tablet 125 mg PO DAILY Discharge Orders: Discharge Order (Routine); Ordered 03/09/24 Ordered By: Aracelis Ramos Patient Education: Amoxicillin (By mouth), Ipratropium/Albuterol (By breathing), Dyspnea (DC) Additional Instructions: Keep catheter in place. Nebulizer and treatments sent to [facility] (and antibiotics too). I would take 4-6 U of insulin at night time and keep an eye on your sugars, I think these will come down again now that you're off of the steroids. Keep working on protein intake. See Dr. Escobar as scheduled to discuss how you're feeling at home, in addition to a plan of care going forward. Activity Level: No strenuous activity Discharge Diet: Diabetic Follow Up Appointments: Tony Escobar MD [Primary Care Provider] - 03/13/24 11:45 am ([facility] for follow-up.) Forms: [employer] Info Instructions
== END 2024-03-09 14:39 | disposition home or self-care (01) | DRG 194 ==
LOC: ED 20:38 → MEDSURG 23:57
PROVIDERS: Family Medicine; Admitting Provider Student in an Organized Health Care Education/Training Program; Emergency Provider Family Medicine; PCP Surgery; Visit Provider Family Medicine
DX: J92.0 Pleural plaque with presence of asbestos (principal); N18.4 Chronic kidney disease, stage 4 (severe); N39.0 Urinary tract infection, site not specified; J90 Pleural effusion, not elsewhere classified; I12.9 Hypertensive chronic kidney disease with stage 1 through stage 4 chronic kidney disease, or unspecified chronic kidney disease; E11.22 Type 2 diabetes mellitus with diabetic chronic kidney disease; E11.65 Type 2 diabetes mellitus with hyperglycemia; Z79.4 Long term (current) use of insulin; I45.10 Unspecified right bundle-branch block; Z77.090 Contact with and (suspected) exposure to asbestos; M62.562 Muscle wasting and atrophy, not elsewhere classified, left lower leg; M62.561 Muscle wasting and atrophy, not elsewhere classified, right lower leg; R63.4 Abnormal weight loss; R19.7 Diarrhea, unspecified; E86.0 Dehydration; E78.5 Hyperlipidemia, unspecified; R06.00 Dyspnea, unspecified; I08.2 Rheumatic disorders of both aortic and tricuspid valves; R53.1 Weakness; B95.2 Enterococcus as the cause of diseases classified elsewhere; D32.0 Benign neoplasm of cerebral meninges; T38.0X5A Adverse effect of glucocorticoids and synthetic analogues, initial encounter; Y92.230 Patient room in hospital as the place of occurrence of the external cause; R51.9 Headache, unspecified; R33.9 Retention of urine, unspecified; Z68.20 Body mass index [BMI] 20.0-20.9, adult; R13.10 Dysphagia, unspecified
CPT/HCPCS: 36415; 51701; 51798; 70450; 70553; 71045; 71250; 71275; 74150; 80048; 80053; 81001; 82550; 82565; 82803; 82962; 83605; 83615; 83880; 84484; 84550; 85025; 86140; 87040; 87086; 87186; 87631; 92610; 93005; 93306; 94761; 97110; 97116; 97162; 97165; 97530; 97535; 99284; 99285; A9270; A9575; J0696; J1100; J1815; J2270; J7030; J7512; Q9957; Q9967